=== PATIENT | male | born 1950 | race Caucasian/White ===

== ENCOUNTER 2017-11-10 18:03 | Emergency (ER) | payer MEDICARE, BC, OTHER, SELFPAY ==
[2017-11-10] VITALS (45 sets, daily range): BP systolic 123–168; BP diastolic 75–118; PULSE 91–161; RESP 12–67; TEMP 36.7–37.2; O2SAT 91–97
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
[2017-11-10] MEDS: Normal Saline 500 ML IV (18:30)
[2017-11-10 18:47] LABS: Abs Immature Grans 0.01 k/cumm (0.0-0.09); Absolute Basophil Count 0.03 k/cumm (0.0-0.2); Absolute Lymphocyte Count 1.27 k/cumm (1.2-3.4); Absolute Monocyte Count 0.69 k/cumm (0.11-0.7); Absolute Neutrophil Count 2.51 k/cumm (1.2-6.7); Basophils % 0.6; Eosinophils % 6.2; HCT 38.4 % (40.0-50.0); HGB 13.1 g/dL (13.5-17.5); Immature Grans % 0.2; Lymphocytes % 26.4; Mean Corp. HGB Concentration 34.1 g/dL (32.0-36.0); Mean Corpuscular Hemoglobin 34.6 pg (27.0-33.0); Mean Corpuscular Volume 101.3 fL (80-95); Mean Platelet Volume 9.2 fL (8.0-11.0); Monocytes % 14.3; Neutrophils % 52.3; Platelet Count 139 x1000/uL (130-400); RBC 3.79 m/cumm (4.50-6.00); RBC Distribution Width 13.5 % (11.8-14.1); White Blood Cell Count 4.81 k/cumm (4.4-10.8)
[2017-11-10 18:50] LABS: PTT Activated 35.4 sec (21.0-31.4); Prothrombin Time 57.4 sec (9.3-10.8)
[2017-11-10 18:52] LABS: ALT 60 U/L (12-78); AST 88 U/L (15-37); Albumin 2.9 g/dL (3.4-5.0); Alkaline Phosphatase 102 U/L (46-116); Anion Gap 10.5 mmol/L (3-11); BUN 12 mg/dL (7-18); Bilirubin, Total 0.5 mg/dL (0.2-1.0); CO2 27.5 mmol/L (21.0-32.0); CREATININE 1.14 mg/dL (0.70-1.30); Calcium 8.1 mg/dL (8.5-10.1); Chloride 104 mmol/L (98-107); ETHANOL BLOOD 183.2 mg/dL (<3); Glucose 139 mg/dL (70-100); Magnesium 2.2 mg/dL (1.8-2.4); Potassium 3.4 mmol/L (3.5-5.1); Sodium 142 mmol/L (136-145); Total Protein 6.2 g/dL (6.4-8.2)
[2017-11-10 18:59] LABS: Troponin I < 0.02 ng/mL (0.00-0.06)
[2017-11-10 19:01] LABS: INR 6.3 (1.0-3.5)
[2017-11-10] MEDS: Omnipaque 350 MG/ML 100 ML BTL 125 ML IV (19:20)
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
[2017-11-10] MEDS: PHYTONADIONE 10 MG in Normal Saline 50 ML 200 MG IVPB (21:21)
[2017-11-10] MEDS: MORPHine 10 MG/ML VIAL 4 MG IVP (21:51)
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
--- NOTE | 2017-11-12 21:32 | NUR.NOTE ---
Nursing Note: As charted on 11/10/17 Kcentra was administered in LAC IV site and ended at 2049.
== END 2017-11-10 21:57 | disposition short-term general hospital (02) ==
PROVIDERS: Nurse Practitioner Family; Emergency Provider Emergency Medicine
DX: S06.360A Traumatic hemorrhage of cerebrum, unspecified, without loss of consciousness, initial encounter (principal); S13.4XXA Sprain of ligaments of cervical spine, initial encounter; Z04.3 Encounter for examination and observation following other accident; V47.5XXA Car driver injured in collision with fixed or stationary object in traffic accident, initial encounter; I48.0 Paroxysmal atrial fibrillation; I10 Essential (primary) hypertension; R79.1 Abnormal coagulation profile; T45.515A Adverse effect of anticoagulants, initial encounter; Z79.01 Long term (current) use of anticoagulants; M79.642 Pain in left hand; M25.552 Pain in left hip; F10.129 Alcohol abuse with intoxication, unspecified; Y90.6 Blood alcohol level of 120-199 mg/100 ml
CPT/HCPCS: 70450; 70486; 71260; 72125; 72128; 72131; 73130; 73502; 73552; 74177; 93005; 96361; 96365; 96368; 96375; 96376; 99291 ×2; J2270; J3430; 36415; 80053; 86850; 86900; 86901; 80320; 83735; 84484; 85025; 85610; 85730; 93010; J3490

== ENCOUNTER 2021-09-17 16:05 | Outpatient (CLI) | payer MEDICARE, BC, SELFPAY ==
[2021-09-17 13:48] LABS: Abs Immature Grans 0.02 10^3/uL (0.0-0.06); Absolute Basophil Count 0.04 10^3/uL (0.0-0.2); Absolute Lymphocyte Count 1.06 10^3/uL (1.2-3.4); Absolute Monocyte Count 0.68 10^3/uL (0.1-0.8); Absolute Neutrophil Count 6.51 10^3/uL (1.2-6.7); Basophils % 0.5; Eosinophils % 1.2; HCT 42.5 % (40.0-50.0); HGB 13.6 g/dL (13.5-17.5); Immature Grans % 0.2; Lymphocytes % 12.6; MCH 31.8 pg (27.0-33.0); MCV 99 fL (80-95); MPV 9.5 fL (8.0-11.0); Monocytes % 8.1; Neutrophils % 77.4; Platelet Count 180 10^3/uL (130-400); RBC 4.28 10^6/uL (4.36-5.78); RDW 12.9 % (11.8-14.1); RDW-SD 47.2 fL; WBC 8.41 10^3/uL (4.4-10.8)
[2021-09-17 14:02] LABS: ALT 21 U/L (16-63); AST 11 U/L (15-37); Albumin 3.6 g/dL (3.4-5.0); Alkaline Phosphatase 100 U/L (46-116); Anion Gap 9.5 mmol/L (3-11); BUN 14 mg/dL (7-18); Bilirubin, Total 0.6 mg/dL (0.2-1.0); CO2 26.5 mmol/L (21.0-32.0); CREATININE 0.8 mg/dL (0.70-1.30); Chloride 104 mmol/L (98-107); Glucose 199 mg/dL (74-106); Potassium 4.6 mmol/L (3.5-5.1); Sodium 140 mmol/L (136-145); Total Protein 7.3 g/dL (6.4-8.2)
== END 2021-09-17 16:06 | disposition home or self-care (01) ==
LOC: LBO 16:08
PROVIDERS: Visit Provider Internal Medicine Hematology & Oncology
DX: C25.0 Malignant neoplasm of head of pancreas (principal)
CPT/HCPCS: 36415; 80053; 85025

== ENCOUNTER 2021-09-23 04:01 | Outpatient (CLI) | payer MEDICARE, BC, SELFPAY ==
[2021-09-23 12:09] LABS: Abs Immature Grans 0.03 10^3/uL (0.0-0.06); Absolute Basophil Count 0.02 10^3/uL (0.0-0.2); Absolute Eosinophil Count 0.15 10^3/uL (0.0-0.7); Absolute Monocyte Count 0.53 10^3/uL (0.1-0.8); Absolute Neutrophil Count 6.23 10^3/uL (1.2-6.7); Basophils % 0.3; HCT 43.6 % (40.0-50.0); HGB 14.3 g/dL (13.5-17.5); Immature Grans % 0.4; Lymphocytes % 6.7; MCH 31.8 pg (27.0-33.0); MCHC 32.8 % (32.0-36.0); MCV 97 fL (80-95); MPV 9.7 fL (8.0-11.0); Monocytes % 7.1; Neutrophils % 83.5; Platelet Count 141 10^3/uL (130-400); RBC 4.49 10^6/uL (4.36-5.78); RDW 13.2 % (11.8-14.1); RDW-SD 46.8 fL; WBC 7.46 10^3/uL (4.4-10.8)
[2021-09-23 13:06] LABS: ALT 23 U/L (16-63); AST 15 U/L (15-37); Albumin 3.4 g/dL (3.4-5.0); Alkaline Phosphatase 122 U/L (46-116); Anion Gap 8.3 mmol/L (3-11); BUN 10 mg/dL (7-18); Bilirubin, Total 0.6 mg/dL (0.2-1.0); CO2 27.7 mmol/L (21.0-32.0); CREATININE 0.8 mg/dL (0.70-1.30); Calcium 8.9 mg/dL (8.5-10.1); Chloride 105 mmol/L (98-107); Glucose 159 mg/dL (74-106); Potassium 3.3 mmol/L (3.5-5.1); Sodium 141 mmol/L (136-145); Total Protein 7.1 g/dL (6.4-8.2)
== END 2021-09-23 04:02 | disposition home or self-care (01) ==
LOC: LBO 04:01
PROVIDERS: Visit Provider Internal Medicine Hematology & Oncology
DX: C25.0 Malignant neoplasm of head of pancreas (principal)
CPT/HCPCS: 36415; 80053; 85025

== ENCOUNTER 2021-10-07 03:09 | Outpatient (RCR) | payer MEDICARE, BC, SELFPAY ==
[2021-09-30] MEDS: Heparin 500 UNITS/5 ML SYRINGE IV (08:53)
[2021-09-30] MEDS: Normal Saline Flush 10 ML SYR IVP (08:53)
[2021-09-30 09:07] LABS: Abs Immature Grans 0.03 10^3/uL (0.0-0.06); Absolute Basophil Count 0.03 10^3/uL (0.0-0.2); Absolute Eosinophil Count 0.15 10^3/uL (0.0-0.7); Absolute Lymphocyte Count 0.29 10^3/uL (1.2-3.4); Absolute Monocyte Count 1.04 10^3/uL (0.1-0.8); Basophils % 0.3; Eosinophils % 1.3; HCT 37.2 % (40.0-50.0); HGB 12.3 g/dL (13.5-17.5); Immature Grans % 0.3; Lymphocytes % 2.6; MCH 31.9 pg (27.0-33.0); MCHC 33.1 % (32.0-36.0); MCV 96 fL (80-95); MPV 10.3 fL (8.0-11.0); Monocytes % 9.2; Neutrophils % 86.3; Platelet Count 129 10^3/uL (130-400); RBC 3.86 10^6/uL (4.36-5.78); RDW 13.3 % (11.8-14.1)
[2021-09-30 09:08] LABS: Absolute Neutrophil Count 9.75 10^3/uL (1.2-6.7)
[2021-09-30 09:34] LABS: ALT 22 U/L (16-63); AST 16 U/L (15-37); Albumin 3.1 g/dL (3.4-5.0); Alkaline Phosphatase 107 U/L (46-116); Anion Gap 9.5 mmol/L (3-11); BUN 9 mg/dL (7-18); Bilirubin, Total 0.5 mg/dL (0.2-1.0); CO2 27.5 mmol/L (21.0-32.0); CREATININE 0.7 mg/dL (0.70-1.30); Calcium 8.4 mg/dL (8.5-10.1); Chloride 100 mmol/L (98-107); Glucose 202 mg/dL (74-106); Potassium 3.3 mmol/L (3.5-5.1); Sodium 137 mmol/L (136-145); Total Protein 6.5 g/dL (6.4-8.2)
[2021-10-07 09:30] LABS: Abs Immature Grans 0.03 10^3/uL (0.0-0.06); Absolute Basophil Count 0.03 10^3/uL (0.0-0.2); Absolute Eosinophil Count 0.24 10^3/uL (0.0-0.7); Absolute Lymphocyte Count 0.38 10^3/uL (1.2-3.4); Absolute Monocyte Count 0.87 10^3/uL (0.1-0.8); Absolute Neutrophil Count 5.21 10^3/uL (1.2-6.7); Basophils % 0.4; Eosinophils % 3.6; HCT 38.2 % (40.0-50.0); HGB 12.5 g/dL (13.5-17.5); Immature Grans % 0.4; Lymphocytes % 5.6; MCH 31.5 pg (27.0-33.0); MCHC 32.7 % (32.0-36.0); MCV 96 fL (80-95); MPV 9.5 fL (8.0-11.0); Monocytes % 12.9; Neutrophils % 77.1; Platelet Count 147 10^3/uL (130-400); RBC 3.97 10^6/uL (4.36-5.78); RDW 13.8 % (11.8-14.1); WBC 6.76 10^3/uL (4.4-10.8)
[2021-10-07 09:50] LABS: ALT 22 U/L (16-63); AST 14 U/L (15-37); Albumin 3.3 g/dL (3.4-5.0); Alkaline Phosphatase 89 U/L (46-116); Anion Gap 5.6 mmol/L (3-11); BUN 12 mg/dL (7-18); Bilirubin, Total 0.6 mg/dL (0.2-1.0); CO2 26.4 mmol/L (21.0-32.0); CREATININE 0.7 mg/dL (0.70-1.30); Calcium 8.6 mg/dL (8.5-10.1); Chloride 104 mmol/L (98-107); Glucose 83 mg/dL (74-106); Potassium 3.7 mmol/L (3.5-5.1); Sodium 136 mmol/L (136-145); Total Protein 6.6 g/dL (6.4-8.2)
== END 2021-10-10 23:59 | disposition home or self-care (01) ==
LOC: INF 03:09
PROVIDERS: Visit Provider Internal Medicine Hematology & Oncology
DX: C25.0 Malignant neoplasm of head of pancreas (principal); Z45.2 Encounter for adjustment and management of vascular access device
CPT/HCPCS: 36591; 80053; 85025

== ENCOUNTER 2021-10-15 02:14 | Outpatient (RCR) | payer MEDICARE, BC, SELFPAY ==
[2021-10-15] MEDS: Normal Saline Flush 10 ML SYR IVP (14:05)
[2021-10-15] MEDS: Heparin 500 UNITS/5 ML SYRINGE IV (14:06)
[2021-10-15 14:09] LABS: Abs Immature Grans 0.03 10^3/uL (0.0-0.06); Absolute Basophil Count 0.03 10^3/uL (0.0-0.2); Absolute Eosinophil Count 0.09 10^3/uL (0.0-0.7); Absolute Lymphocyte Count 0.27 10^3/uL (1.2-3.4); Absolute Monocyte Count 0.72 10^3/uL (0.1-0.8); Absolute Neutrophil Count 5.78 10^3/uL (1.2-6.7); Basophils % 0.4; Eosinophils % 1.3; HCT 42.3 % (40.0-50.0); HGB 13.6 g/dL (13.5-17.5); Immature Grans % 0.4; Lymphocytes % 3.9; MCH 31.3 pg (27.0-33.0); MCHC 32.2 % (32.0-36.0); MCV 98 fL (80-95); MPV 9.9 fL (8.0-11.0); Monocytes % 10.4; Neutrophils % 83.6; Platelet Count 153 10^3/uL (130-400); RBC 4.34 10^6/uL (4.36-5.78); RDW 14.4 % (11.8-14.1); WBC 6.92 10^3/uL (4.4-10.8)
[2021-10-15 14:24] LABS: ALT 24 U/L (16-63); AST 16 U/L (15-37); Albumin 3.6 g/dL (3.4-5.0); Alkaline Phosphatase 103 U/L (46-116); BUN 13 mg/dL (7-18); Bilirubin, Total 0.6 mg/dL (0.2-1.0); CREATININE 0.8 mg/dL (0.70-1.30); Calcium 8.8 mg/dL (8.5-10.1); Chloride 102 mmol/L (98-107); Glucose 153 mg/dL (74-106); Potassium 3.9 mmol/L (3.5-5.1); Sodium 137 mmol/L (136-145); Total Protein 7.1 g/dL (6.4-8.2)
== END 2021-11-10 23:59 | disposition home or self-care (01) ==
LOC: INF 02:14
PROVIDERS: Visit Provider Internal Medicine Hematology & Oncology
DX: C25.0 Malignant neoplasm of head of pancreas (principal); Z45.2 Encounter for adjustment and management of vascular access device
CPT/HCPCS: 36591; 80053; 85025

== ENCOUNTER 2021-10-15 11:27 | Outpatient (CLI) | payer MEDICARE, BC, SELFPAY | END 2021-10-15 11:28 | disposition home or self-care (01) | LOC: LBO 11:27 | PROVIDERS: Visit Provider Internal Medicine Hematology & Oncology ==

== ENCOUNTER 2022-02-21 17:00 | Outpatient (CLI) | payer MEDICARE, BC, SELFPAY ==
[2022-02-21 16:17] LABS: Abs Immature Grans 0.02 10^3/uL (0.0-0.06); Absolute Basophil Count 0.03 10^3/uL (0.0-0.2); Absolute Eosinophil Count 0.11 10^3/uL (0.0-0.7); Absolute Lymphocyte Count 0.45 10^3/uL (1.2-3.4); Absolute Monocyte Count 0.41 10^3/uL (0.1-0.8); Absolute Neutrophil Count 4.73 10^3/uL (1.2-6.7); Basophils % 0.5; Eosinophils % 1.9; HCT 35.2 % (40.0-50.0); HGB 11.4 g/dL (13.5-17.5); Immature Grans % 0.3; Lymphocytes % 7.8; MCH 30.6 pg (27.0-33.0); MCHC 32.4 % (32.0-36.0); MCV 95 fL (80-95); MPV 9.7 fL (8.0-11.0); Monocytes % 7.1; Neutrophils % 82.4; Platelet Count 138 10^3/uL (130-400); RBC 3.72 10^6/uL (4.36-5.78); RDW 15.6 % (11.8-14.1); RDW-SD 54.7 fL; WBC 5.75 10^3/uL (4.4-10.8)
[2022-02-21 17:10] LABS: ALT 47 U/L (16-63); AST 47 U/L (15-37); Albumin 3.1 g/dL (3.4-5.0); Alkaline Phosphatase 145 U/L (46-116); BUN 13 mg/dL (7-18); Bilirubin, Total 0.8 mg/dL (0.2-1.0); CREATININE 0.8 mg/dL (0.70-1.30); Calcium 8.6 mg/dL (8.5-10.1); Chloride 100 mmol/L (98-107); Estimated GFR 93.45 (mL/min/1.73m2); Glucose 317 mg/dL (74-106); Potassium 4.7 mmol/L (3.5-5.1); Sodium 136 mmol/L (136-145); Total Protein 6.5 g/dL (6.4-8.2)
[2022-02-24 11:02] LABS: CA 19-9 84 U/mL (<35)
== END 2022-02-21 17:01 | disposition home or self-care (01) ==
LOC: LBO 17:01
PROVIDERS: Visit Provider Internal Medicine Hematology & Oncology
DX: C25.0 Malignant neoplasm of head of pancreas (principal)
CPT/HCPCS: 36415; 80053; 85025; 86301

== ENCOUNTER 2022-03-21 08:58 | Day surgery (SDC) | payer OTHER, SELFPAY ==
[2022-03-21 09:15] VITALS: BP 140/94; PULSE 72; RESP 16; TEMP 36.9; O2SAT 99
[2022-03-21] MEDS: Tropicam./Phenyleph. (1/2.5%) 5 ML BTL OS ×3 (09:29→09:55)
--- NOTE | 2022-03-21 10:57 | ANES.PREOP_ITS ---
General Info Date of Service Date Performed: 03/21/22 Height: 5 ft 9 in Weight: 58 kg Body Mass Index (BMI): 18.8 Surgical Procedure: Operation Date: 03/21/22 11:40 Proposed Procedure Side Surgeon p Cataract Extraction with IOL Implant Left Taiwo Tran MD Meds Allergies and Home Medications Allergies Allergy/AdvReac Type Severity Reaction Status Date / Time cefaclor [From [facility]] Allergy Hives Unverified 03/21/22 09:39 Home Medication Medication Instructions Recorded amlodipine 5 mg tablet 5 mg PO DAILY 11/10/17 cholecalciferol (vitamin D3) 25 1 tab PO DAILY 11/10/17 mcg (1,000 unit) tablet artificial tears with lanolin eye 1 applic ophthalmic (eye) HS 03/19/22 ointment buprenorphine 2 mg-naloxone 0.5 mg 1 tab sublingual DAILY 03/19/22 sublingual tablet cholecalciferol (vitamin D3) 25 25 mcg PO DAILY 03/19/22 mcg (1,000 unit) capsule diltiazem HCl 120 mg capsule,24 120 mg PO DAILY 03/19/22 hr,extended release eucalyptol-methyl 1 ea mucous membrane BID 03/19/22 qddikuabmi-qxmtcji-rpvlqw mouthwash gabapentin 300 mg capsule 300 mg PO TID 03/19/22 insulin glargine 100 unit/mL (3 7 unit subcut QPM 03/19/22 mL) subcutaneous pen qhpxqa-hkkfisxc-difhypk 4 cap PO TID 03/19/22 24,000-76,000-120,000 unit capsule,delayed rel (Creon) loperamide 2 mg capsule 2 - 4 mg PO Q4H PRN 03/19/22 nutritional supplements ml PO BID 03/19/22 omeprazole 20 mg capsule,delayed 20 mg PO DAILY 03/19/22 release oxycodone 5 mg capsule 5 mg PO TID PRN 03/19/22 peg 400-propylene glycol 0.4 %-0.3 2 drp ophthalmic (eye) QID 03/19/22 % eye drops prochlorperazine maleate 10 mg 10 mg PO Q6H PRN 03/19/22 tablet rosuvastatin 20 mg tablet 10 mg PO DAILY 03/19/22 Current Visit Medications: Current Medications Generic Name Dose Route Start Last Admin Trade Name Freq PRN Reason Stop Dose Admin Acetaminophen 1,000 mg 03/21/22 06:00 Acetaminophen 500 Mg Tab PO Q4H PRN PRN Miscellaneous Medication 0 ml 03/21/22 06:00 Prednisolone 1%, Moxifloxacin 0.5%, Nepafenac 0.1% 5ml Btl OS DIRECTED [facility] Miscellaneous Medication 0 ml 03/21/22 06:00 03/21/22 09:55 Tropicam./Phenyleph. (1/2.5%) 5 Ml Btl OS 1 drp DIRECTED [facility] Administration Tetracaine HCl 0 ml 03/21/22 06:00 Tetracaine 0.5% 4 Ml Btl OS DIRECTED [facility] PFSH Active Problems Active Problems: Problem Status Onset Code Posterior subcapsular age-related cataract of left eye H25.042 Nuclear sclerotic cataract of left eye H25.12 Medical History Medical History (Updated 03/21/22 @ 10:54 by Taiwo Tran MD) ADHD Anxiety disorder CAD (coronary artery disease) Chronic atrial fibrillation Chronic low back pain Chronic renal insufficiency CVA (cerebral vascular accident) Depressive disorder Diabetes mellitus History of diarrhea Hypertension Infection abdominal wound infection Insomnia Opioid dependence Pain Pancreatic cancer PTSD (post-traumatic stress disorder) Surgical History Surgical History (Updated 03/21/22 @ 10:02 by Maggie Oneal) H/O Whipple procedure 12/02 History of cholecystectomy Tobacco Smoking/Tobacco Use Status: Current every day Tobacco Type: smokeless tobacco Alcohol Alcohol Intake: never Substance Use Substance use: Never Substance use type: does not use Vital Signs and Lab Results Vital Signs Most Recent Vital Signs in EMR: Most Recent Vital Signs Temp Pulse Resp BP Pulse Ox 36.9 C 72 16 140/94 H 99 03/21/22 09:15 03/21/22 09:15 03/21/22 09:15 03/21/22 09:15 03/21/22 09:15 Point of Care Results Point of Care Results: Finger Stick Blood Glucose 296 03/21/22 09:17 Lab Results Blood Type / Crossmatch: No Data to Display Complete Blood Count: White Blood Count 5.75 10^3/uL (4.4-10.8) 02/21/22 16:05 Red Blood Count 3.72 10^6/uL (4.36-5.78) L 02/21/22 16:05 Hemoglobin 11.4 g/dL (13.5-17.5) L 02/21/22 16:05 Hematocrit 35.2 % (40.0-50.0) L 02/21/22 16:05 Platelet Count 138 10^3/uL (130-400) 02/21/22 16:05 Complete Metabolic Panel: Sodium 136 mmol/L (136-145) 02/21/22 16:05 Potassium 4.7 mmol/L (3.5-5.1) 02/21/22 16:05 Chloride 100 mmol/L (98-107) 02/21/22 16:05 Carbon Dioxide 31.0 mmol/L (21.0-32.0) 02/21/22 16:05 BUN 13 mg/dL (7-18) 02/21/22 16:05 Creatinine 0.8 mg/dL (0.70-1.30) 02/21/22 16:05 Est GFR (CKD-EPI 2020) 93.45 (mL/min/1.73m2) 02/21/22 16:05 Calcium 8.6 mg/dL (8.5-10.1) 02/21/22 16:05 Albumin 3.1 g/dL (3.4-5.0) L 02/21/22 16:05 Glucose 317 mg/dL (74-106) H 02/21/22 16:05 Liver Function Panel: Alanine Aminotransferase (ALT/SGPT) 47 U/L (16-63) 02/21/22 16: 05 Aspartate Amino Transf (AST/SGOT) 47 U/L (15-37) H 02/21/22 16: 05 Coagulation Panel: No Data to Display Cardiac Panel: No Data to Display Arterial Blood Gas: No Data to Display Venous Blood Gas: No Data to Display Pancreas Panel: No Data to Display Thyroid Panel: No Data to Display Infectious Disease: No Data to Display Blood Cultures: No Data to Display Toxicology Panel: 2 No Data to Display Anesthesia Assessment and Plan Anesthesia History Personal History: No History of Anesthesia Complications Family History: No Family History of Anesthesia Complications Exercise Tolerance Exercise Tolerance: Metabolic Equivalents>4 Pertinent Negatives Pertinent Negatives: No Symptoms of GERD, No Major Cardiovascular Symptoms or Complaints (Atrial fib), No Major Pulmonary Symptoms or Complaints and No History of CVA/TIA Cardiac & Pulmonary Exam Cardiac Exam: Normal S1/S2 Heart Sounds Pulmonary Exam: Clear Bilateral Breath Sounds Implantable Cardiac Device Does patient have a Pacemaker or an ICD?: No Airway Exam Known Difficult Airway: No Mallampati Class: 1 Mouth Opening: Normal (> 3cm) Thyromental Distance: Greater than 3 cm Facial Hair: Full [place]ani Neck Range of Motion: Full ROM Neck Circumference: Normal Teeth Condition: Generalized Poor Dentition Airway Comments: No loose teeth ASA Classification ASA Score: ASA 2 Emergency Case?: No NPO Status NPO Status: NPO Clears >2 hours, Solids >8 hours Anesthesia Plan Resuscitation Status: Full Code Anesthesia Technique: General Anesthesia Airway Planned: Natural Airway Monitors Used: Standard Monitors
[2022-03-21 10:58] VITALS: BMI 18.8
[2022-03-21] MEDS: Tetracaine 0.5% 4 ML BTL OS (11:13)
[2022-03-21] MEDS: Balanced Salt Soln.-PLUS 500 ML BAG (11:14)
[2022-03-21] MEDS: Duovisc Viscoelastic System EACH 1 EACH (11:14)
[2022-03-21] MEDS: Lidocaine 2% Jelly 6 ML SYR (11:15)
[2022-03-21] MEDS: Povidone-Iodine Ophth 30 ML BTL (11:16)
[2022-03-21] MEDS: Trypan Blue 0.06% 0.5 ML SYR (11:25)
--- NOTE | 2022-03-21 11:44 | ROE_ITS ---
Date of service: 03/21/22 Time of Service: 11:44 Operative Note Operative Note DATE OF PROCEDURE: 03/21/22 PRE-OP DIAGNOSIS: Nuclear/posterior subcapsular cataract, left eye Poorly dilating pupil, left eye Poor red reflex, left eye PROCEDURE: Cataract extraction using phacoemulsification with intraocular lens implant, left eye, with pupillary dilation using Malyugin Ring and capsular staining using Vision Blue SURGEON: Taiwo Tran ANESTHESIA TYPE: Local By Surgeon and MAC Refer to Anesthesia Record ESTIMATED BLOOD LOSS: 0 PATHOLOGY: none sent COMPLICATIONS: None Patient was transported to: same day Patient's condition: stable Implants: [employer] Tecnis [id number] Indications: Progressive decreased vision due to cataract, left eye Procedure Description: CATARACT SURGERY OPERATIVE REPORT PREOPERATIVE DIAGNOSIS: 1. Nuclear/posterior subcapsular cataract, left eye 2. Poorly dilating pupil, left eye 3. Poor red reflex, left eye POSTOPERATIVE DIAGNOSIS: Same OPERATION: 1. Cataract extraction using phacoemulsification with posterior chamber intraocular lens implant, left eye. 2. Pupillary dilation and iris stabilization using Malyugin Ring 3. Capsular staining with VIsion Blue IOL: IOL Evidence Technician/Model: [employer] / UNA Tecnis [id number] IOL Power: + 20.0 diopters IOL Serial Number: [id number] Optic Diameter: 6.0mm Haptic/Overall Diameter: 13.0mm PHACO INFO: Thad Centurion Vision System with OZil and Active [employer]ics Cumulative Dispersed Energy (CDE): 22.56 seconds SURGEON: Taiwo Tran MD, NATAN ANESTHESIA: Monitored Anesthesia Care (MAC), with local sub-tenon's anesthetic infiltration COMPLICATIONS: None SPECIMENS: None INDICATIONS FOR PROCEDURE: The patient is a 71-year-old gentleman with history of diminished visual acuity in his left eye secondary to the development of significant nuclear/posterior subcapsular cataract. The option of cataract surgery was offered to the patient and he wished to proceed. PROCEDURE: The correct surgical eye was identified and marked as the left eye and the pupil was dilated in the preoperative area using mydriatics, cycloplegics, and NSAIDS (except in aspirin allergic patients). The dilated pupil size was 4.0 mm. The patient was brought to the operating room where cardiopulmonary monitoring was instituted and surgical time-out was performed, confirming the correct operative eye and IOL power. Topical anesthesia was administered and ophthalmic povidone-iodine 5% was instilled into the conjunctival fornices. Lidocaine gel was applied to the cornea and the jorje-ocular area was prepped with Betadine 10% solution and draped in the usual sterile fashion for intraocular surgery, including an aperture drape. A Tegaderm transparent film dressing was cut in half and used to cover the lashes and lid margins. Care was taken to sequester the lashes and lid margins under the Tegaderm dressing. A lid speculum was placed between the lids of the operative eye and the Ana Cristina-Miguel Angel operating microscope was maneuvered into position. Orquidea scissors were then used to make a conjunctival buttonhole approximately 6mm posterior to the limbus in the inferonasal quadrant. Blunt dissection was carried out to expose bare sclera, and a blunt-tipped sub-tenon?s anesthesia cannula was introduced and passed posteriorly along the globe where non- preserved plain lidocaine was injected into posterior sub-Tenon?s space. A sideport knife was used to make a paracentesis port superiorly/superiortemporally. Intraocular phenylephrine/lidocaine was injected into the anterior chamber. Air was then injected into anterior chamber, followed by Vision Blue, which was painted over the anterior capsule centrally and under the pupillary margin and then irrigated out with BSS. The anterior chamber was then filled with viscoelastic. A 2.4mm keratome knife was used to create a half-thickness groove at the limbus and then to construct a three-plane near- clear corneal tunnel extending 2.0mm into clear cornea temporally. A 7.0 mm Malyugin Ring was then inserted into the pupillary space and engaged with the Kuglen hook. A flap was raised on the anterior capsule and capsulorhexis forceps were used to complete a continuous curvilinear capsulorhexis of 5.5 mm. Balanced salt solution was then used to perform cortical cleaving hydrodissection and nuclear hydrodelineation until the lens could be freely rot ated within the capsular bag. The lens nucleus was then disassembled and removed within the capsular bag and iris plane using phacoemulsification. Residual cortical material was removed using the 45-degree angled silicone I/A tip with 0.3mm port. The posterior capsule was carefully polished to remove as much residual lens epithelial cells as safely possible. The capsular bag was then inflated and the anterior chamber deepened with viscoelastic. The lens implant described above was inserted into the capsular bag using the UNA Habematolel Injector. A Kuglen hook was used to dial the IOL into position. The Malyugin Ring was removed in the reverse order of its insertion. Residual viscoelastic was then removed first from posterior to the IOL, then from the anterior chamber using the I/A handpiece. The lens implant was noted to center nicely within the capsular bag. The incisions were stromally hydrated, and the anterior chamber was reformed using BSS. Then 0.5cc of moxifloxacin 1.0mg/ml were injected into the capsular bag and anterior chamber. The incisions were checked with a Weck spear and found to be secure. Several drops of ophthalmic povidone-iodine 5% were then applied to the eye followed by two drops of Imprimis combination prednisolone/moxifloxacin/nepafenac solution. The drapes were removed and a clear plastic protective eye shield was placed over the eye. The patient was then returned to Same Day Surgery in stable condition.
--- NOTE | 2022-03-21 11:44 | PDOC.DSDIS_ITS ---
Date of service: 03/21/22 Time of Service: 11:44 Discharge Plan Disposition Patient Disposition: HOME Condition: Good Discharge Details Attending Provider: Taiwo Tran Primary Care Provider: [facility] Home Meds and New Rx's Prescriptions: No Action loperamide 2 mg Capsule 2 - 4 mg PO Q4H PRN Rx Instructions: administer after each loose stool until symptoms controlled; do not exceed 8 mg per 24 hrs Nutra/Shake Liquid PO BID prochlorperazine maleate 10 mg Tablet 10 mg PO Q6H PRN diltiazem HCl 120 mg Capsule,Extended Release 24 Hr 120 mg PO DAILY oxycodone 5 mg Capsule 5 mg PO TID PRN gabapentin 300 mg Capsule 300 mg PO TID omeprazole 20 mg Capsule,Delayed Release(Dr/Ec) 20 mg PO DAILY buprenorphine-naloxone 2-0.5 mg Tablet, Sublingual 1 tab SUBLINGUAL DAILY peg 400-propylene glycol 0.4-0.3 % Drops 2 drp OPHTHALMIC (EYE) QID rosuvastatin 20 mg Tablet 10 mg PO DAILY Eye Lubricant Ointment 1 applic OPHTHALMIC (EYE) HS Rx Instructions: while awake; not to exceed 16 doses per 24 hour period insulin glargine 100 unit/mL (3 mL) Insulin Pen 7 unit SUBCUT QPM Creon 24,000-76,000 -120,000 unit Capsule,Delayed Release(Dr/Ec) 4 cap PO TID Rx Instructions: administer with meals and/or snacks cholecalciferol (vitamin D3) 25 mcg (1,000 unit) Capsule 25 mcg PO DAILY Mouth Rinse Mouthwash 1 ea mucous membrane BID amlodipine 5 MG tablet 5 mg PO DAILY cholecalciferol (vitamin D3) 1,000 UNITS tablet 1 tab PO DAILY Discharge Instructions Stand Alone Forms: Post-op Topical CataractPatty (DSU) DS: Diagnosis Discharge Diagnosis (1) Posterior subcapsular age-related cataract of left eye: Status: Resolved (2) Nuclear sclerotic cataract of left eye: Status: Resolved
[2022-03-21 11:45] VITALS: BP 125/98; PULSE 88; RESP 16; TEMP 36.2; O2SAT 96
--- NOTE | 2022-03-21 11:46 | W.ANESPOSTOP ---
Postoperative Evaluation Date, Time and Location Date Performed: 03/21/22 Time Performed: 11:46 Patient Location: Day Surgery Unit Vital Signs Most Recent Imported Vital Signs: Most Recent Vital Signs Temp Pulse Resp BP Pulse Ox 36.9 C 72 16 140/94 H 99 03/21/22 09:15 03/21/22 09:15 03/21/22 09:15 03/21/22 09:15 03/21/22 09:15 Most Recent Manually Entered Vital Signs: Adult Blood Pressure: 125/98 Heart Rate: 89 Respirations: 10 Oxygen Saturation (%): 98 Temperature (C): 36.3 C Pain Score (0-10 Scale): 0 Pain Score Most Recent Pain Score: Most Recent Pain Score Pain Level 0 03/21/22 09:15 Assessment Mental Status: Awake (Alert & Oriented to Patient Baseline) Airway and Respiratory Function: Patent airway with normal (patient baseline) respiratory exam Cardiovascular Function: Hemodynamically Stable Hydration Status: Adequately Hydrated Nausea & Vomiting: No Nausea or Vomiting Pain: Pt. Denies Any Pain Peripheral Nerve Block: Patient did not receive a nerve block
[2022-03-21 11:47] VITALS: BP 125/98; PULSE 89; RESP 10; TEMPC 36.3; O2SAT 98
== END 2022-03-21 12:13 | disposition home or self-care (01) ==
PROVIDERS: Visit Provider Ophthalmology
PROC: (CPT 66982; principal; 2022-03-21 11:30)
DX: H25.042 Posterior subcapsular polar age-related cataract, left eye (principal); H57.03 Miosis; E11.9 Type 2 diabetes mellitus without complications; Z79.4 Long term (current) use of insulin
CPT/HCPCS: 66982; V2632

== ENCOUNTER 2022-03-31 11:14 | Day surgery (SDC) | payer OTHER, SELFPAY ==
[2022-03-31] MEDS: Tropicam./Phenyleph. (1/2.5%) 5 ML BTL OD ×3 (12:40→12:53)
[2022-03-31 12:41] VITALS: BP 136/88; PULSE 80; RESP 16; TEMP 36.5; O2SAT 98
--- NOTE | 2022-03-31 13:01 | W.ANESPRE ---
General Info Date of Service Date Performed: 03/31/22 Height: 5 ft 9 in Weight: 56.5 kg Body Mass Index (BMI): 18.3 Surgical Procedure: Operation Date: 03/31/22 14:40 Proposed Procedure Side Surgeon p Cataract Extraction with IOL Implant Right Taiwo Tran MD Meds Allergies and Home Medications Allergies Allergy/AdvReac Type Severity Reaction Status Date / Time cefaclor [From [facility]] Allergy Hives Unverified 03/31/22 12:33 Home Medication Medication Instructions Recorded amlodipine 5 mg tablet 5 mg PO DAILY 11/10/17 cholecalciferol (vitamin D3) 25 1 tab PO DAILY 11/10/17 mcg (1,000 unit) tablet artificial tears with lanolin eye 1 applic ophthalmic (eye) HS 03/19/22 ointment buprenorphine 2 mg-naloxone 0.5 mg 1 tab sublingual DAILY 03/19/22 sublingual tablet cholecalciferol (vitamin D3) 25 25 mcg PO DAILY 03/19/22 mcg (1,000 unit) capsule diltiazem HCl 120 mg capsule,24 120 mg PO DAILY 03/19/22 hr,extended release eucalyptol-methyl 1 ea mucous membrane BID 03/19/22 bcbabljebs-jabwers-jatgmp mouthwash gabapentin 300 mg capsule 300 mg PO TID 03/19/22 insulin glargine 100 unit/mL (3 7 unit subcut QPM 03/19/22 mL) subcutaneous pen hlgktf-ceiftagr-umqffhp 4 cap PO TID 03/19/22 24,000-76,000-120,000 unit capsule,delayed rel (Creon) loperamide 2 mg capsule 2 - 4 mg PO Q4H PRN 03/19/22 nutritional supplements 240 ml PO BID 03/19/22 omeprazole 20 mg capsule,delayed 20 mg PO DAILY 03/19/22 release oxycodone 5 mg capsule 5 mg PO TID PRN 03/19/22 peg 400-propylene glycol 0.4 %-0.3 2 drp ophthalmic (eye) QID 03/19/22 % eye drops prochlorperazine maleate 10 mg 10 mg PO Q6H PRN 03/19/22 tablet rosuvastatin 20 mg tablet 10 mg PO DAILY 03/19/22 Current Visit Medications: Current Medications Generic Name Dose Route Start Last Admin Trade Name Freq PRN Reason Stop Dose Admin Acetaminophen 1,000 mg 03/31/22 06:00 Acetaminophen 500 Mg Tab PO Q4H PRN PRN Miscellaneous Medication 0 ml 03/31/22 06:00 Prednisolone 1%, Moxifloxacin 0.5%, Nepafenac 0.1% 5ml Btl OD DIRECTED [facility] Miscellaneous Medication 0 ml 03/31/22 06:00 03/31/22 12:53 Tropicam./Phenyleph. (1/2.5%) 5 Ml Btl OD 1 drp DIRECTED [facility] Administration Tetracaine HCl 0 ml 03/31/22 06:00 Tetracaine 0.5% 4 Ml Btl OD DIRECTED [facility] PFSH Active Problems Active Problems: Problem Status Onset Code Posterior subcapsular age-related cataract, right eye H25.041 Nuclear sclerotic cataract of right eye H25.11 Nuclear sclerotic cataract of left eye H25.12 Posterior subcapsular age-related cataract of left eye H25.042 Medical History Medical History ADHD Anxiety disorder CAD (coronary artery disease) Chronic atrial fibrillation Chronic low back pain Chronic renal insufficiency CVA (cerebral vascular accident) Depressive disorder Diabetes mellitus History of diarrhea Hypertension Infection abdominal wound infection Insomnia Opioid dependence Pain Pancreatic cancer PTSD (post-traumatic stress disorder) Medical History Comments:: 0900 chewed tobacco Surgical History Surgical History H/O Whipple procedure 12/02 History of cataract surgery History of cholecystectomy Tobacco Smoking/Tobacco Use Status: Current every day Tobacco Type: smokeless tobacco Alcohol Alcohol Intake: never Substance Use Substance use: Never Substance use type: does not use Vital Signs and Lab Results Vital Signs Most Recent Vital Signs in EMR: Most Recent Vital Signs Temp Pulse Resp BP Pulse Ox 36.5 C 80 16 136/88 98 03/31/22 12:41 03/31/22 12:41 03/31/22 12:41 03/31/22 12:41 03/31/22 12:41 Point of Care Results Point of Care Results: Finger Stick Blood Glucose 218 03/31/22 11:59 Lab Results Blood Type / Crossmatch: No Data to Display Complete Blood Count: No Data to Display Complete Metabolic Panel: No Data to Display Liver Function Panel: No Data to Display Coagulation Panel: No Data to Display Cardiac Panel: No Data to Display Arterial Blood Gas: No Data to Display Venous Blood Gas: No Data to Display Pancreas Panel: No Data to Display Thyroid Panel: No Data to Display Infectious Disease: No Data to Display Blood Cultures: No Data to Display Toxicology Panel: No Data to Display Anesthesia Assessment and Plan Anesthesia History Personal History: No History of Anesthesia Complications Family History: No Family History of Anesthesia Complications Exercise Tolerance Exercise Tolerance: Metabolic Equivalents>4 Pertinent Negatives Pertinent Negatives: No Symptoms of GERD, No Major Cardiovascular Symptoms or Complaints and No Major Pulmonary Symptoms or Complaints Cardiac & Pulmonary Exam Cardiac Exam: Normal S1/S2 Heart Sounds Pulmonary Exam: Clear Bilateral Breath Sounds Implantable Cardiac Device Does patient have a Pacemaker or an ICD?: No Airway Exam Known Difficult Airway: No Mallampati Class: 1 Mouth Opening: Normal (> 3cm) Thyromental Distance: Greater than 3 cm Neck Range of Motion: Full ROM Neck Circumference: Normal Teeth Condition: Generalized Poor Dentition Airway Comments: No loose teeth ASA Classification ASA Score: ASA 3 Emergency Case?: No NPO Status NPO Status: NPO Clear Liquids>2 hours Anesthesia Plan Resuscitation Status: Full Code Anesthesia Technique: MAC Anesthesia Airway Planned: Natural Airway Monitors Used: Standard Monitors Preoperative Comments:: Discussed smokeless tobacco use and NPO status. Discussed with Dr. Tran and patient, plan to proceed with no sedation.
[2022-03-31 13:03] VITALS: BMI 18.3
[2022-03-31] MEDS: Povidone-Iodine Ophth 30 ML BTL (13:23)
[2022-03-31] MEDS: Tetracaine 0.5% 4 ML BTL OD (13:23)
[2022-03-31] MEDS: Lidocaine 2% Jelly 6 ML SYR (13:24)
[2022-03-31] MEDS: Balanced Salt Soln.-PLUS 500 ML BAG (13:29)
[2022-03-31] MEDS: Duovisc Viscoelastic System EACH 1 EACH (13:29)
[2022-03-31] MEDS: Lidocaine 1% Pres-Free 5 ML VIAL (13:30)
--- NOTE | 2022-03-31 13:52 | W.PM.DSUDISC ---
Date of service: 03/31/22 Time of Service: 13:52 Discharge Plan Disposition Patient Disposition: Home Discharge Details Attending Provider: Taiwo Tran Primary Care Provider: [facility] Home Meds and New Rx's Prescriptions: No Action loperamide 2 mg Capsule 2 - 4 mg PO Q4H PRN Rx Instructions: administer after each loose stool until symptoms controlled; do not exceed 8 mg per 24 hrs Nutra/Shake Liquid 240 ml PO BID prochlorperazine maleate 10 mg Tablet 10 mg PO Q6H PRN diltiazem HCl 120 mg Capsule,Extended Release 24 Hr 120 mg PO DAILY oxycodone 5 mg Capsule 5 mg PO TID PRN gabapentin 300 mg Capsule 300 mg PO TID omeprazole 20 mg Capsule,Delayed Release(Dr/Ec) 20 mg PO DAILY buprenorphine-naloxone 2-0.5 mg Tablet, Sublingual 1 tab SUBLINGUAL DAILY peg 400-propylene glycol 0.4-0.3 % Drops 2 drp OPHTHALMIC (EYE) QID rosuvastatin 20 mg Tablet 10 mg PO DAILY Eye Lubricant Ointment 1 applic OPHTHALMIC (EYE) HS Rx Instructions: while awake; not to exceed 16 doses per 24 hour period insulin glargine 100 unit/mL (3 mL) Insulin Pen 7 unit SUBCUT QPM Creon 24,000-76,000 -120,000 unit Capsule,Delayed Release(Dr/Ec) 4 cap PO TID Rx Instructions: administer with meals and/or snacks cholecalciferol (vitamin D3) 25 mcg (1,000 unit) Capsule 25 mcg PO DAILY Mouth Rinse Mouthwash 1 ea mucous membrane BID amlodipine 5 MG tablet 5 mg PO DAILY cholecalciferol (vitamin D3) 1,000 UNITS tablet 1 tab PO DAILY Discharge Instructions Stand Alone Forms: Post-op Topical Cataract, Patty Briceey (DSU) Discharge Orders Discharge Orders: Discharge Order (Routine); Ordered 03/31/22 Ordered By: Taiwo Tran DS: Diagnosis Discharge Diagnosis (1) Posterior subcapsular age-related cataract, right eye: Status: Resolved (2) Nuclear sclerotic cataract of right eye: Status: Resolved
--- NOTE | 2022-03-31 13:53 | W.PM.OP ---
Date of service: 03/31/22 Time of Service: 13:53 Operative Note Operative Note DATE OF PROCEDURE: 03/31/22 PRE-OP DIAGNOSIS: Nuclear/cortical cataract, right eye Poorly dilating pupil, right eye POST-OP DIAGNOSIS: same PROCEDURE: 1. Cataract extraction by phacoemulsification with intraocular lens implantation, right eye, with pupillary expansion device SURGEON: Taiwo Tran ANESTHESIA TYPE: Local By Surgeon and MAC Refer to Anesthesia Record PATHOLOGY: none sent COMPLICATIONS: None Patient was transported to: same day Patient's condition: stable Implants: [employer] / [employer] Tecnis [id number] Indications: Progressive decreased vision due to cataract, right eye, with poorly dilating pupil Procedure Description: CATARACT SURGERY OPERATIVE REPORT PREOPERATIVE DIAGNOSIS: 1. Nuclear/cortical cataract, right eye 2. Poorly dilating pupil, right eye POSTOPERATIVE DIAGNOSIS: Same OPERATION: 1. Cataract extraction using phacoemulsification with posterior chamber intraocular lens implant, right eye. 2. Pupillary dilation and iris stabilization using Malyugin Ring IOL: IOL Seismic Prospecting Supervisor/Model: [employer] Amos / UNA Tecnis [id number] IOL Power: + 20.5 diopters IOL Serial Number: [id number] Optic Diameter: 6.0mm Haptic/Overall Diameter: 13.0mm PHACO INFO: Thad Centurion Vision System with OZil and Active Fluidics Cumulative Dispersed Energy (CDE): 11.08 seconds SURGEON: Taiwo Tran MD, NATAN ANESTHESIA: Monitored Anesthesia Care (MAC), with local sub-tenon's anesthetic infiltration COMPLICATIONS: None SPECIMENS: None INDICATIONS FOR PROCEDURE: The patient is a 71-year-old gentleman with history of diminished visual acuity in both eyes secondary to the development of bilateral cataracts. He has already undergone cataract surgery in the left eye and is doing postoperatively. He now presents for cataract surgery in the right eye. PROCEDURE: The correct surgical eye was identified and marked as the right eye and the pupil was dilated in the preoperative area using mydriatics and cycloplegics. The dilated pupil size was 4.0 mm. He elected to proceed without oral sedation.. The patient was brought to the operating room where cardiopulmonary monitoring was instituted and surgical time-out was performed, confirming the correct operative eye and IOL power. Topical anesthesia was administered and ophthalmic povidone-iodine 5% was instilled into the conjunctival fornices. Lidocaine gel was applied to the cornea and the jorje-ocular area was prepped with Betadine 10% solution and draped in the usual sterile fashion for intraocular surgery, including an aperture drape. A Tegaderm transparent film dressing was cut in half and used to cover the lashes and lid margins. Care was taken to sequester the lashes and lid margins under the Tegaderm dressing. A lid speculum was placed between the lids of the operative eye and the Thad LuxOR Revalia operating microscope was maneuvered into position. Orquidea scissors were then used to make a conjunctival buttonhole approximately 6mm posterior to the limbus in the inferonasal quadrant. Blunt dissection was carried out to expose bare sclera, and a blunt-tipped sub-tenon?s anesthesia cannula was introduced and passed posteriorly along the globe where non-preserved plain lidocaine was injected into posterior sub-Tenon?s space. A sideport knife was used to make a paracentesis port inferiortemporally. Intraocular phenylephrine/lidocaine was injected in the anterior chamber. The anterior chamber was filled with viscoelastic. A keratome knife was used to construct a 2-plane near-clear corneal tunnel extending 2.0mm into clear cornea superiortemporally. A 7.0 mm Malyugin Ring was then inserted into the pupillary space and engaged with the Kuglen hook. A flap was raised on the anterior capsule and capsulorhexis forceps were used to complete a continuous curvilinear capsulorhexis of 5.5 mm. Balanced salt solution was then used to perform cortical cleaving hydrodissection and nuclear hydrodelineation until the lens could be freely rotated within the capsular bag. The lens nucleus was then disassembled and removed within the capsular bag and iris plane using phacoemulsification. Residual cortical material was removed using the 45-degree angled silicone I/A tip with 0.3mm port. The posterior capsule was carefully polished to remove as much residual lens epithelial cells as safely possible. The capsular bag was then inflated and the anterior chamber deepened with viscoelastic. The lens implant described above was inserted into the capsular bag using the UNA Pokagon Injector. A Kuglen hook was used to dial the IOL into position. The Malyugin Ring was removed in the reverse order of its insertion. Residual viscoelastic was then removed first from posterior to the IOL, then from the anterior chamber using the I/A handpiece. The lens implant was noted to center nicely within the capsular bag. The incisions were stromally hydrated, and the anterior chamber was reformed using BSS. Then 0.5cc of moxifloxacin 1.0mg/ml were injected into the capsular bag and anterior chamber. The incisions were checked with a Weck spear and found to be secure. Several drops of ophthalmic povidone-iodine 5% were then applied to the eye followed by two drops of Imprimis combination prednisolone/moxifloxacin/nepafenac solution. The drapes were removed and a clear plastic protective eye shield was placed over the eye. The patient was then returned to Same Day Surgery in stable condition.
[2022-03-31 13:55] VITALS: BP 141/88; PULSE 83; RESP 16; TEMP 36.5; O2SAT 100
--- NOTE | 2022-03-31 14:09 | W.ANESPOSTOP ---
Postoperative Evaluation Date, Time and Location Date Performed: 03/31/22 Time Performed: 14:09 Patient Location: Day Surgery Unit Vital Signs Most Recent Imported Vital Signs: Most Recent Vital Signs Temp Pulse Resp BP Pulse Ox 36.5 C 83 16 141/88 H 100 03/31/22 13:55 03/31/22 13:55 03/31/22 13:55 03/31/22 13:55 03/31/22 13:55 Pain Score Most Recent Pain Score: Most Recent Pain Score Pain Level 0 03/31/22 13:55 Assessment Mental Status: Awake (Alert & Oriented to Patient Baseline) Airway and Respiratory Function: Patent airway with normal (patient baseline) respiratory exam Cardiovascular Function: Hemodynamically Stable Hydration Status: Adequately Hydrated Nausea & Vomiting: No Nausea or Vomiting Pain: Pt. Denies Any Pain Peripheral Nerve Block: Patient did not receive a nerve block
== END 2022-03-31 14:25 | disposition home or self-care (01) ==
LOC: SUR 11:15
PROVIDERS: Visit Provider Ophthalmology
PROC: (CPT 66982; principal; 2022-03-31 14:30)
DX: H25.041 Posterior subcapsular polar age-related cataract, right eye (principal); H57.03 Miosis
CPT/HCPCS: 66982; V2632

== ENCOUNTER 2022-09-01 06:07 | Day surgery (SDC) | payer MEDICARE, BC, SELFPAY ==
[2022-09-01] VITALS (10 sets, daily range): BP systolic 103–136; BP diastolic 67–101; PULSE 65–86; RESP 12–17; TEMP 36.2–36.7; O2SAT 96–100; BMI 17.7
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
[2022-09-01] MEDS: Lactated Ringers 1,000 ML 80 ML IV (07:05)
[2022-09-01] MEDS: Insulin REGULAR-Human 100 UNITS/ML UNIT 10 UNITS SC (07:25)
[2022-09-01] MEDS: CLINDAMYCIN 600 MG/50 ML BAG 100 MG IVPB (07:39)
[2022-09-01] MEDS: Bacitracin 1 PACKET (08:17)
[2022-09-01] MEDS: Bupivacaine 0.25% Pres-Free 30 ML VIAL (08:17)
--- NOTE | 2022-09-01 08:20 | W.PM.DSUDISC ---
Date of service: 09/01/22 Time of Service: 08:20 Discharge Plan Disposition Patient Disposition: Home Condition: Stable Discharge Details Attending Provider: Rafat Harry Home Meds and New Rx's Prescriptions: New oxycodone 5 mg tablet 5 - 10 mg PO QID MDD 8 PRN (Reason: pain) Qty: 40 0RF Rx Instructions: may have 5 to 10 mg as needed Discontinued oxycodone 5 mg Capsule 5 mg PO TID PRN No Action Glucerna Liquid PO prochlorperazine maleate [Compazine] 10 mg tablet 10 mg PO Q6H PRN buprenorphine-naloxone [Suboxone] 8-2 mg film 1 film buccal DAILY diphenhydramine HCl [Benadryl Allergy] 25 mg tablet 25 mg PO QHS PRN docusate sodium [Colace] 100 mg capsule 100 mg PO DAILY rosuvastatin 20 mg tablet 40 mg PO DAILY Jardiance 25 mg tablet 25 mg PO DAILY dronabinol 2.5 mg capsule 2.5 mg PO BID Rx Instructions: administer before 2 capsules lunch and 1 capsule evening meal/dinner loperamide 2 mg Capsule 2 - 4 mg PO Q4H PRN Rx Instructions: administer after each loose stool until symptoms controlled; do not exceed 8 mg per 24 hrs Nutra/Shake Liquid 240 ml PO BID prochlorperazine maleate 10 mg Tablet 10 mg PO Q6H PRN diltiazem HCl 120 mg Capsule,Extended Release 24 Hr 120 mg PO DAILY gabapentin 300 mg Capsule 300 mg PO TID omeprazole 20 mg Capsule,Delayed Release(Dr/Ec) 20 mg PO DAILY peg 400-propylene glycol 0.4-0.3 % Drops 2 drp OPHTHALMIC (EYE) QID Eye Lubricant Ointment 1 applic OPHTHALMIC (EYE) HS Rx Instructions: while awake; not to exceed 16 doses per 24 hour period insulin glargine 100 unit/mL (3 mL) Insulin Pen 18 unit SUBCUT DAILY Creon 24,000-76,000 -120,000 unit Capsule,Delayed Release(Dr/Ec) 4 cap PO TID Rx Instructions: administer with meals and/or snacks cholecalciferol (vitamin D3) 25 mcg (1,000 unit) Capsule 25 mcg PO DAILY Mouth Rinse Mouthwash 1 ea mucous membrane BID amlodipine 5 MG tablet 5 mg PO DAILY Patient Comments: pt. states he has not taken in a long time, 09/01/22 cholecalciferol (vitamin D3) 1,000 UNITS tablet 1 tab PO DAILY Discharge Instructions Additional Instructions: no lifting over 10 pounds for 1 week may shower and remove gauze dressings 09/02 wear scrotal support/tight undergarments for @ 1 week ice pack to scrotum while awake (bag of frozen peas works well) followup @ 2 weeks Activity:: no lifting over 10 pounds for 1 week Remove Dressings/Wound Care:: 24 hours Shower/Bathe:: 24 hours Diet:: As Tolerated Discharge Orders Discharge Orders: Discharge Order (Routine); Ordered 09/01/22 Ordered By: Rafat Harry DS: Diagnosis Discharge Diagnosis (1) Right hydrocele: Status: Acute
--- NOTE | 2022-09-01 08:30 | W.PM.OP ---
Date of service: 09/01/22 Time of Service: 08:30 Operative Note Operative Note DATE OF PROCEDURE: 09/01/22 PRE-OP DIAGNOSIS: right hydrocele POST-OP DIAGNOSIS: same PROCEDURE: right hydrocelectomy SURGEON: Rafat Harry ANESTHESIA TYPE: General LMA/ETT Refer to Anesthesia Record ESTIMATED BLOOD LOSS: 10 PATHOLOGY: none sent COMPLICATIONS: None Patient was transported to: PACU Patient's condition: stable Implants: none Indications: This is a 72-year-old gentleman who has right scrotal swelling which is not really painful, but makes it difficult to sit at times. He was evaluated with a scrotal ultrasound which showed a hydrocele with no evidence of hernia. Since he is symptomatic, he presents for hydrocelectomy Findings: Hydrocele: With no palpable hernia Procedure Description: The patient was to the operating room on 09/01/2022. He was given preoperative IV antibiotics. After successful induction of general anesthesia, he was placed in the supine position. His genitalia was prepped and draped. A right-sided scrotal field block was performed using quarter percent Marcaine without epinephrine. A transverse right scrotal incision was made and extended down through the subcutaneous tissue and dartos muscle. We then came upon a fluid-filled sac. As the sac was palpated, the fluid actually resolved. We were able to pull the right testis still within the tunica vaginalis up through the incision. We opened the tunica vaginalis anteriorly. I passed my finger up with the remainder of the tunica vaginalis but I did not feel any defects or obvious hernia. The edges of the tunica vaginalis were then reapproximated behind the testis using a short segment of running 3-0 chromic suture. A cord block was performed using quarter percent Marcaine. The testis was then delivered back within the right hemiscrotum. The dartos muscle was reapproximated with a segment of running 3-0 chromic. The skin was reapproximated using a simple interrupted 4-0 Vicryl suture line. A fluff dressing was applied to the wound followed by a scrotal support. He tolerated the procedure well with no complications.
[2022-09-01] MEDS: oxyCODONE 5 MG TAB PO (10:13)
--- NOTE | 2022-09-01 10:22 | W.ANESPOSTOP ---
Postoperative Evaluation Date, Time and Location Date Performed: 09/01/22 Time Performed: :22 Patient Location: Day Surgery Unit Vital Signs Most Recent Imported Vital Signs: Most Recent Vital Signs Temp Pulse Resp BP Pulse Ox 36.2 C L 78 16 132/88 100 09/01/22 09:28 09/01/22 09:28 09/01/22 09:28 09/01/22 09:28 09/01/22 09:28 Pain Score Most Recent Pain Score: Most Recent Pain Score Pain Level 0 09/01/22 09:28 Assessment Mental Status: Awake (Alert & Oriented to Patient Baseline) Airway and Respiratory Function: Patent airway with normal (patient baseline) respiratory exam Cardiovascular Function: Hemodynamically Stable Hydration Status: Adequately Hydrated Nausea & Vomiting: No Nausea or Vomiting Pain: Pain is tolerable per patient Peripheral Nerve Block: Patient did not receive a nerve block Postoperative Comments:: Had discussed his insulin, he did receive education on hypoglycemia.
== END 2022-09-01 10:53 | disposition home or self-care (01) ==
PROVIDERS: Visit Provider Urology
PROC: (CPT 55040; principal; 2022-09-01 07:30)
DX: N43.3 Hydrocele, unspecified (principal); E11.9 Type 2 diabetes mellitus without complications; I10 Essential (primary) hypertension; Z79.4 Long term (current) use of insulin
CPT/HCPCS: 55040; J1100; J2405; J2704; J3475

== ENCOUNTER 2022-09-15 01:26 | Outpatient (CLI) | payer MEDICARE, BC, SELFPAY ==
--- NOTE | 2022-09-15 | DI.CT_ITS ---
Exam(s) CT CHEST W EXAM: CT CHEST W CLINICAL HISTORY: NEOPLASM OF PANCREAS,C25.0,F/U 06/2022 INDETERMINATE LUNG NODULE TECHNIQUE: Imaging Protocol: Axial computed tomography images with coronal and sagittal reformatted images were created and reviewed CONTRAST MATERIAL: Intravenous: Omnipaque 350Contrast volume:70 mL. COMPARISON: CT THORACIC AND LUMBAR SPINE WO from 11/10/2017 CT CHEST ABD PELVIS WITH CONTRAST from 11/10/[address] CHEST ABDOMEN PELVIS W CONTRAST (GENERIC) from 06/19/2022 FINDINGS: Tracheobronchial tree: Patent where visualized. Pulmonary parenchyma: No consolidation or dominant measurable mass. There is a stable 6 mm nodule in the anterior aspect of the left lower lobe. The irregular density in the medial aspect of the left l ower lobe is unchanged compared to the prior examination. There are small pleural based areas of sca r nodular scarring in the lung bases. Mediastinum and Ginny: No dominant adenopathy or fluid collection. The esophagus is unremarkable. Thyroid gland: Unremarkable. Pleura: No effusion or pneumothorax. Heart: Cardiomegaly. Prominent coronary artery calcification is present. No pericardial effusion. Aorta: Thoracic aorta non-dilated. Atherosclerosis. No evidence of dissection. Pulmonary arteries: Due to the timing of the bolus, pulmonary artery opacification is suboptimal. No large central pulmonary embolus is seen. Upper abdomen: Postsurgical changes in the upper abdomen. There is a question of a heterogeneous so ft tissue mass interposed between the SMV/portal vein confluence and the superior mesenteric artery. It is incompletely imaged on this examination. It measures approximately 2.9 x 2.6 cm. Lymph nodes: Within normal limits. Bones: Within normal limits for the patient's age. Soft tissues: Unremarkable. IMPRESSION: 1. Stable irregular density in the left lower lobe medially. 2. No acute pulmonary process. 3. Heterogeneous soft tissue mass interposed between the SMV/portal vein confluence in the superior m esenteric artery. It measures approximately 2.9 x 2.6 cm and is incompletely imaged on this examinat ion. A CT scan of the abdomen is recommended for further evaluation. 4. Postsurgical changes in the upper abdomen. RADIATION DOSE DELIVERED: 352.09mGy.cm Total DLP DATA REPOSITORY: All CT scans at this facility are submitted to the National Radiology Data Registry (NRDR) Dose Index Registry (DIR) with the [employer] (ACR). RADIATION OPTIMIZATION: All CT scans at this facility use at least one of these dose optimization te chniques: automated exposure control; mA and/or kV adjustment per patient size (includes targeted exa ms where dose is matched to clinical indication); or iterative reconstruction.
[2022-09-15 14:48] LABS: Abs Immature Grans 0.02 10^3/uL (0.0-0.06); Absolute Basophil Count 0.03 10^3/uL (0.0-0.2); Absolute Eosinophil Count 0.12 10^3/uL (0.0-0.7); Absolute Monocyte Count 0.38 10^3/uL (0.1-0.8); Absolute Neutrophil Count 4.09 10^3/uL (1.2-6.7); Basophils % 0.6; Eosinophils % 2.3; HCT 40.6 % (40.0-50.0); HGB 13.4 g/dL (13.5-17.5); Immature Grans % 0.4; Lymphocytes % 11.5; MCH 32.1 pg (27.0-33.0); MCV 97 fL (80-95); MPV 8.4 fL (8.0-11.0); Monocytes % 7.3; Neutrophils % 77.9; Platelet Count 170 10^3/uL (130-400); RBC 4.17 10^6/uL (4.36-5.78); RDW 12.3 % (11.8-14.1); RDW-SD 44.4 fL; WBC 5.24 10^3/uL (4.4-10.8)
[2022-09-15 15:01] LABS: ALT 28 U/L (16-63); AST 21 U/L (15-37); Albumin 3.4 g/dL (3.4-5.0); Alkaline Phosphatase 101 U/L (46-116); BUN 12 mg/dL (7-18); Bilirubin, Total 0.7 mg/dL (0.2-1.0); Calcium 8.9 mg/dL (8.5-10.1); Chloride 103 mmol/L (98-107); Estimated GFR 78.98 (mL/min/1.73m2); Glucose 346 mg/dL (74-106); Potassium 4.5 mmol/L (3.5-5.1); Sodium 135 mmol/L (136-145)
[2022-09-15] MEDS: Omnipaque 350 MG/ML 500 ML BTL-Imaging package IJ (15:11)
[2022-09-15] MEDS: Normal Saline - Diluent 50 ML VIAL IJ (15:12)
[2022-09-17 10:52] LABS: CA 19-9 1231 U/mL (<35)
== END 2022-09-15 01:46 ==
PROVIDERS: Visit Provider Internal Medicine Hematology & Oncology
DX: C25.0 Malignant neoplasm of head of pancreas (principal); Z98.890 Other specified postprocedural states; R91.8 Other nonspecific abnormal finding of lung field
CPT/HCPCS: 80053; 71260; 85025; 86301

== ENCOUNTER → 2022-09-29 07:59 | Outpatient (BNVA) | payer MEDICARE, BC, SELFPAY | PROVIDERS: Visit Provider Nurse Practitioner Gerontology | DX: Z48.816 Encounter for surgical aftercare following surgery on the genitourinary system (principal); Z87.448 Personal history of other diseases of urinary system | CPT/HCPCS: 99213 ==

== ENCOUNTER → 2022-12-01 12:54 | Outpatient (BNVA) | payer MEDICARE, BC, SELFPAY | PROVIDERS: Visit Provider Nurse Practitioner Gerontology | DX: N50.89 Other specified disorders of the male genital organs (principal) | CPT/HCPCS: 99213 ==

== ENCOUNTER 2022-12-05 00:55 | Outpatient (RCR) | payer MEDICARE, BC, SELFPAY ==
[2022-11-21 08:48] LABS: Abs Immature Grans 0.01 10^3/uL (0.0-0.06); Absolute Basophil Count 0.03 10^3/uL (0.0-0.2); Absolute Eosinophil Count 0.19 10^3/uL (0.0-0.7); Absolute Lymphocyte Count 0.51 10^3/uL (1.2-3.4); Absolute Monocyte Count 0.46 10^3/uL (0.1-0.8); Absolute Neutrophil Count 3.77 10^3/uL (1.2-6.7); Basophils % 0.6; Eosinophils % 3.8; HCT 36.1 % (40.0-50.0); HGB 12.1 g/dL (13.5-17.5); Immature Grans % 0.2; Lymphocytes % 10.3; MCH 31.7 pg (27.0-33.0); MCHC 33.5 % (32.0-36.0); MCV 95 fL (80-95); MPV 8.9 fL (8.0-11.0); Monocytes % 9.3; Neutrophils % 75.8; Platelet Count 137 10^3/uL (130-400); RBC 3.82 10^6/uL (4.36-5.78); RDW 13.7 % (11.8-14.1); RDW-SD 47.5 fL; WBC 4.97 10^3/uL (4.4-10.8)
[2022-11-21 09:11] LABS: ALT 20 U/L (16-63); AST 15 U/L (15-37); Albumin 3.2 g/dL (3.4-5.0); Alkaline Phosphatase 91 U/L (46-116); Anion Gap 8.5 mmol/L (3-11); BUN 16 mg/dL (7-18); Bilirubin, Total 0.8 mg/dL (0.2-1.0); CO2 26.5 mmol/L (21.0-32.0); CREATININE 0.8 mg/dL (0.70-1.30); Calcium 8.5 mg/dL (8.5-10.1); Chloride 105 mmol/L (98-107); Estimated GFR 92.87 (mL/min/1.73m2); Glucose 205 mg/dL (74-106); Potassium 3.9 mmol/L (3.5-5.1); Sodium 140 mmol/L (136-145); Total Protein 6.4 g/dL (6.4-8.2)
[2022-11-24 12:16] LABS: CA 19-9 1780 U/mL (<35)
[2022-11-28 09:28] LABS: Abs Immature Grans 0.01 10^3/uL (0.0-0.06); Absolute Basophil Count 0.01 10^3/uL (0.0-0.2); Absolute Eosinophil Count 0.02 10^3/uL (0.0-0.7); Absolute Lymphocyte Count 0.29 10^3/uL (1.2-3.4); Absolute Monocyte Count 0.31 10^3/uL (0.1-0.8); Absolute Neutrophil Count 3.54 10^3/uL (1.2-6.7); Basophils % 0.2; Eosinophils % 0.5; HCT 34.8 % (40.0-50.0); HGB 11.5 g/dL (13.5-17.5); Immature Grans % 0.2; Lymphocytes % 6.9; MCV 94 fL (80-95); MPV 9.3 fL (8.0-11.0); Monocytes % 7.4; Neutrophils % 84.8; RBC 3.71 10^6/uL (4.36-5.78); RDW 13.1 % (11.8-14.1); RDW-SD 45.1 fL; WBC 4.18 10^3/uL (4.4-10.8)
[2022-11-28 09:39] LABS: Platelet Count 69 10^3/uL (130-400)
[2022-11-28 09:43] LABS: ALT 12 U/L (16-63); AST 16 U/L (15-37); Albumin 2.6 g/dL (3.4-5.0); Alkaline Phosphatase 86 U/L (46-116); Anion Gap 6.8 mmol/L (3-11); BUN 17 mg/dL (7-18); Bilirubin, Total 0.8 mg/dL (0.2-1.0); CO2 28.2 mmol/L (21.0-32.0); CREATININE 0.6 mg/dL (0.70-1.30); Calcium 8.6 mg/dL (8.5-10.1); Chloride 107 mmol/L (98-107); Glucose 123 mg/dL (74-106); Potassium 3.5 mmol/L (3.5-5.1); Sodium 142 mmol/L (136-145); Total Protein 6.2 g/dL (6.4-8.2)
[2022-11-28] MEDS: Normal Saline Flush 10 ML SYR IVP (11:41)
[2022-11-28] MEDS: Heparin 500 UNITS/5 ML SYRINGE IV (11:41)
[2022-12-05] MEDS: Normal Saline Flush 10 ML SYR IVP (09:51)
[2022-12-05 10:05] LABS: Abs Immature Grans 0.01 10^3/uL (0.0-0.06); Absolute Basophil Count 0.04 10^3/uL (0.0-0.2); Absolute Eosinophil Count 0.06 10^3/uL (0.0-0.7); Absolute Lymphocyte Count 0.54 10^3/uL (1.2-3.4); Absolute Monocyte Count 0.48 10^3/uL (0.1-0.8); Absolute Neutrophil Count 3.51 10^3/uL (1.2-6.7); Basophils % 0.9; Eosinophils % 1.3; HCT 34.2 % (40.0-50.0); HGB 11.4 g/dL (13.5-17.5); Immature Grans % 0.2; Lymphocytes % 11.6; MCH 31.7 pg (27.0-33.0); MCHC 33.3 % (32.0-36.0); MCV 95 fL (80-95); MPV 9.1 fL (8.0-11.0); Monocytes % 10.3; Neutrophils % 75.7; Platelet Count 264 10^3/uL (130-400); RDW 13.8 % (11.8-14.1); RDW-SD 47.1 fL; WBC 4.64 10^3/uL (4.4-10.8)
[2022-12-05 10:33] LABS: ALT 60 U/L (16-63); AST 103 U/L (15-37); Albumin 2.9 g/dL (3.4-5.0); Alkaline Phosphatase 117 U/L (46-116); Anion Gap 6.7 mmol/L (3-11); BUN 15 mg/dL (7-18); Bilirubin, Total 0.7 mg/dL (0.2-1.0); CO2 28.3 mmol/L (21.0-32.0); CREATININE 0.7 mg/dL (0.70-1.30); Calcium 8.3 mg/dL (8.5-10.1); Chloride 104 mmol/L (98-107); Estimated GFR 96.69 (mL/min/1.73m2); Glucose 84 mg/dL (74-106); Potassium 3.7 mmol/L (3.5-5.1); Sodium 139 mmol/L (136-145); Total Protein 6.1 g/dL (6.4-8.2)
== END 2022-12-11 23:59 | disposition home or self-care (01) ==
LOC: INF 00:55
PROVIDERS: Visit Provider Internal Medicine Hematology & Oncology
DX: C25.0 Malignant neoplasm of head of pancreas (principal); Z45.2 Encounter for adjustment and management of vascular access device
CPT/HCPCS: 36591; 80053; 85025; 86301

== ENCOUNTER → 2022-12-09 01:22 | Outpatient (CLI) | payer MEDICARE, BC, SELFPAY ==
--- NOTE | 2022-12-09 07:00 | DI.US_ITS ---
Exam(s) US SCROTUM EXAM: US SCROTUM CLINICAL HISTORY: Right scrotum swelling ? hernia, swelling rt half of scrotum, N50.89. TECHNIQUE: Scrotal ultrasound performed using grayscale, color-flow and spectral Doppler analysis. COMPARISON: US US SCROTUM from 05/19/[address] CHEST ABDOMEN PELVIS W CONTRAST (GENERIC) from 06/19/[address] CHEST W from 09/15/2022 FINDINGS: Right testicle: 3.0 x 1.7 x 2.6 cm Echogenicity: Normal. Contour: Smooth. Mass: None seen. Microlithiasis: None. Hydrocele: There is a 5.9 x 1.9 x 1.5 cm hydrocele. There is also again seen fluid throughout the ri ght inguinal canal. There is also pelvic ascites present. Variocele: None. Hernia: No peristalsing bowel loop identified. Epididymis: There is a 2.1 x 1.8 x 1.5 cm epididymal head cyst. Left testicle: 2.8 x 1.9 x 2.2 cm Echogenicity: Normal. Contour: Smooth. Mass: None seen. Microlithiasis: None. Hydrocele: There is a 3.8 x 0.8 x 2.5 cm hydrocele. There is a 5 mm scrotal francisco present. Variocele: None. Hernia: No peristalsing bowel loop identified. Epididymis: Normal. There is a calcifications seen in the epididymis appendix. DOPPLER: Color: Symmetric and uniform, no hyperemia. IMPRESSION: 1. Pelvic ascites extending into the right inguinal canal and the right scrotum. 2. Bilateral hydroceles. 3. No evidence of a testicular mass. DATA REPOSITORY:
== END ==
PROVIDERS: Visit Provider Nurse Practitioner Gerontology
DX: N50.89 Other specified disorders of the male genital organs (principal)
CPT/HCPCS: 76870

== ENCOUNTER → 2022-12-23 08:06 | Outpatient (BNVA) | payer MEDICARE, BC, SELFPAY | PROVIDERS: Visit Provider Urology | DX: R18.8 Other ascites (principal) | CPT/HCPCS: 99443 ==

== ENCOUNTER 2023-01-02 01:38 | Outpatient (RCR) | payer MEDICARE, BC, SELFPAY ==
[2022-12-19] MEDS: Normal Saline Flush 10 ML SYR IVP (09:00)
[2022-12-19 09:03] LABS: Abs Immature Grans 0.02 10^3/uL (0.0-0.06); Absolute Basophil Count 0.03 10^3/uL (0.0-0.2); Absolute Lymphocyte Count 0.42 10^3/uL (1.2-3.4); Absolute Monocyte Count 0.74 10^3/uL (0.1-0.8); Absolute Neutrophil Count 3.72 10^3/uL (1.2-6.7); Basophils % 0.6; HCT 31.4 % (40.0-50.0); HGB 10.5 g/dL (13.5-17.5); Immature Grans % 0.4; Lymphocytes % 8.3; MCHC 33.4 % (32.0-36.0); MCV 96 fL (80-95); MPV 9.7 fL (8.0-11.0); Monocytes % 14.7; Platelet Count 165 10^3/uL (130-400); RBC 3.28 10^6/uL (4.36-5.78); RDW 14.8 % (11.8-14.1); RDW-SD 51.3 fL; WBC 5.03 10^3/uL (4.4-10.8)
[2022-12-19 09:24] LABS: ALT 53 U/L (16-63); AST 44 U/L (15-37); Albumin 2.5 g/dL (3.4-5.0); Alkaline Phosphatase 132 U/L (46-116); Anion Gap 6.2 mmol/L (3-11); BUN 11 mg/dL (7-18); Bilirubin, Total 0.7 mg/dL (0.2-1.0); CO2 26.8 mmol/L (21.0-32.0); CREATININE 0.9 mg/dL (0.70-1.30); Chloride 103 mmol/L (98-107); Estimated GFR 89.62 (mL/min/1.73m2); Glucose 149 mg/dL (74-106); Potassium 4.1 mmol/L (3.5-5.1); Sodium 136 mmol/L (136-145); Total Protein 5.7 g/dL (6.4-8.2)
[2022-12-19 10:53] LABS: Iron 43 ug/dL (65-175); Total Iron Binding Capacity 199 ug/dL (250-450); Transferrin Sat 22 % (20-55)
[2022-12-19 11:17] LABS: Vitamin D 25 Total 29.3 ng/mL (30-100)
[2022-12-19 11:20] LABS: Ferritin 133 ng/mL (26-388); Folate 16.5 ng/mL (8.6-20.0); Vitamin B12 464 pg/mL (193-986)
[2022-12-22 12:24] LABS: CA 19-9 669 U/mL (<35)
[2022-12-22 17:04] LABS: Free Retinol (Vitamin A) 13.2 mcg/dL (32.5-78.0)
[2023-01-02] MEDS: Normal Saline Flush 10 ML SYR IVP (08:57)
[2023-01-02 09:16] LABS: Abs Immature Grans 0.03 10^3/uL (0.0-0.06); Absolute Basophil Count 0.03 10^3/uL (0.0-0.2); Absolute Eosinophil Count 0.08 10^3/uL (0.0-0.7); Absolute Lymphocyte Count 0.37 10^3/uL (1.2-3.4); Absolute Monocyte Count 0.68 10^3/uL (0.1-0.8); Absolute Neutrophil Count 5.71 10^3/uL (1.2-6.7); Basophils % 0.4; Eosinophils % 1.2; HCT 32.4 % (40.0-50.0); HGB 10.6 g/dL (13.5-17.5); Immature Grans % 0.4; Lymphocytes % 5.4; MCH 31.4 pg (27.0-33.0); MCHC 32.7 % (32.0-36.0); MCV 96 fL (80-95); MPV 9.2 fL (8.0-11.0); Monocytes % 9.9; Neutrophils % 82.7; Platelet Count 219 10^3/uL (130-400); RBC 3.38 10^6/uL (4.36-5.78); RDW 14.4 % (11.8-14.1); RDW-SD 50.6 fL
[2023-01-02 09:20] LABS: ALT 27 U/L (16-63); AST 20 U/L (15-37); Albumin 2.5 g/dL (3.4-5.0); Alkaline Phosphatase 131 U/L (46-116); Anion Gap 7.5 mmol/L (3-11); BUN 12 mg/dL (7-18); Bilirubin, Total 0.6 mg/dL (0.2-1.0); CO2 25.5 mmol/L (21.0-32.0); CREATININE 0.7 mg/dL (0.70-1.30); Calcium 8.3 mg/dL (8.5-10.1); Chloride 103 mmol/L (98-107); Estimated GFR 96.69 (mL/min/1.73m2); Glucose 151 mg/dL (74-106); Potassium 3.6 mmol/L (3.5-5.1); Sodium 136 mmol/L (136-145); Total Protein 5.9 g/dL (6.4-8.2)
[2023-01-05 12:45] LABS: CA 19-9 582 U/mL (<35)
== END 2023-01-10 23:59 | disposition home or self-care (01) ==
LOC: INF 01:38
PROVIDERS: Nurse Practitioner Family; Visit Provider Internal Medicine Hematology & Oncology
DX: C25.0 Malignant neoplasm of head of pancreas (principal); K86.89 Other specified diseases of pancreas; Z90.410 Acquired total absence of pancreas; Z90.49 Acquired absence of other specified parts of digestive tract
CPT/HCPCS: 36591; 80053; 82306; 82607; 82728; 82746; 83540; 83550; 84425; 84446; 84590; 85025; 86301

== ENCOUNTER → 2023-01-12 02:35 | Outpatient (CLI) | payer MEDICARE, BC, SELFPAY ==
--- NOTE | 2023-01-12 | DI.CT_ITS ---
Exam(s) CT CHEST/ABD/PEL W EXAM: CT CHEST/ABD/PEL W CLINICAL HISTORY: RECURENT PANCREATIC CA, ON CHEMO, RESTAGING EVALUATION,C25.0. TECHNIQUE: Imaging Protocol: Axial computed tomography images with coronal and sagittal reformatted images were created and reviewed CONTRAST MATERIAL: Intravenous: Omnipaque 350 Contrast volume:100 ml Oral: Yes. Oral contrast was also administered for bowel opacification. COMPARISON: CT THORACIC AND LUMBAR SPINE WO from 11/10/2017 CT CHEST ABD PELVIS WITH CONTRAST from 11/10/[address] CHEST W from 09/15/2022 FINDINGS: CHEST: Distal tip of the Port-A-Cath is in the lower SVC in satisfactory position. LUNGS: There are now small bilateral pleural effusions, right slightly larger than left and there are small infiltrates in both lower lobes, not previously present.. No new metastatic appearing nodules .a MEDIASTINUM: There is no hilar nor mediastinal adenopathy. Visualized thyroid unremarkable. CARDIAC: Heart size is normal. There is no pericardial effusion.Caliber of the thoracic aorta is wit hin normal limits. OSSEOUS: No significant osseous lesions.. ABDOMEN: There is now a large amount of ascites in the abdomen and pelvis. LIVER: Multiple cysts in the liver again noted. GALLBLADDER/BILIARY: Gallbladder again noted be surgically absent. There is a silastic stent at the level of the bili 0 enterostomy again noted. No prominent dilatation of intrahepatic ducts. The anna astic stent again appears to be discontinuous in the liver. PANCREAS: Abnormal tissue is again noted in casing the superior mesenteric vasculature. Pancreatic b ya and tail appear unremarkable. Pancreatic duct is not dilated. SPLEEN: Spleen is not enlarged. There are no intrasplenic lesions. Splenic and portal veins are mora nt. ADRENALS: There are no significant adrenal masses. KIDNEYS: Cysts in left kidney again noted measuring 4.5 x 4.8 cm. Does not require further workup. Smaller cysts are noted in the right kidney. No solid renal masses. There are tiny hyperdensities c onsistent with calculi in both kidneys, nonobstructive. Ureters are not dilated. ABDOMINAL AORTA: Calcified but not enlarged. LYMPH NODES: There is no retroperitoneal nor paraaortic adenopathy. ABDOMINAL WALL: No evidence of significant anterior abdominal wall nor inguinal hernia. GI: There is no evidence of bowel obstruction. PELVIS: LYMPH NODES: There is no intrapelvic nor inguinal adenopathy. GI: No evidence of appendicitis.No evidence of sigmoid diverticulitis. URINARY BLADDER: There is symmetrical uniform thickening of the urinary bladder wall. This may be ex aggerated by under distension. REPRODUCTIVE: Prostate not enlarged. OSSEOUS: No significant osseous lesions. No fractures. IMPRESSION: 1. Compared to prior abdominal CT scan of October 2017 there has been interval Billroth type surgery wit h gastroenterostomy/cholecystectomy/and biliaryenterostomy with silastic stent across this and resect ion of the pancreatic head. There is abnormal tissue in the surgical bed which may be neoplastic. T his insert colles the proximal SMA. There is prominent amount of ascites in the abdomen and pelvis. No obvious true bowel obstruction nor free air nor abscess. 2. Multiple hypodensities in the liver are again noted which have the appearance of cysts and are unc hanged from CT scan of 09/15/2022 (chest CT scan at that time) but were not evident on CT scan of 201 8. 3. There are now small bilateral pleural effusions, right larger than left. Also some infiltrate in both lung bases now evident. These lung base findings were not evident on the CT scan of 09/15/2022. RADIATION DOSE DELIVERED: 1,014.18mGy.cm Total DLP DATA REPOSITORY: All CT scans at this facility are submitted to the National Radiology Data Registry (NRDR) Dose Index Registry (DIR) with the [employer] (ACR). RADIATION OPTIMIZATION: All CT scans at this facility use at least one of these dose optimization te chniques: automated exposure control; mA and/or kV adjustment per patient size (includes targeted exa ms where dose is matched to clinical indication); or iterative reconstruction.
[2023-01-12] MEDS: Omnipaque 350 MG/ML 100 ML BTL IJ (14:00)
[2023-01-12] MEDS: Normal Saline - Diluent 50 ML VIAL IJ (14:00)
[2023-01-12] MEDS: Barium Sulfate 2% W/V-Berry Smoothie 450 ML BTL PO (14:03)
[2023-01-12] MEDS: Normal Saline Flush 10 ML SYR IVP (14:04)
== END ==
PROVIDERS: Visit Provider Internal Medicine Hematology & Oncology
DX: Z98.890 Other specified postprocedural states (principal); R18.8 Other ascites; K76.89 Other specified diseases of liver; R91.8 Other nonspecific abnormal finding of lung field; C25.0 Malignant neoplasm of head of pancreas
CPT/HCPCS: 36591; 74177; 71260; J1642; J3490

== ENCOUNTER 2023-01-16 10:08 | Outpatient (REF) | payer MEDICARE, BC, SELFPAY ==
[2023-01-16 10:42] LABS: ALT 25 U/L (16-63); AST 21 U/L (15-37); Albumin 2.2 g/dL (3.4-5.0); Alkaline Phosphatase 157 U/L (46-116); Anion Gap 5.1 mmol/L (3-11); BUN 9 mg/dL (7-18); Bilirubin, Total 0.5 mg/dL (0.2-1.0); CO2 26.9 mmol/L (21.0-32.0); CREATININE 0.7 mg/dL (0.70-1.30); Calcium 8.1 mg/dL (8.5-10.1); Chloride 102 mmol/L (98-107); Estimated GFR 96.69 (mL/min/1.73m2); Glucose 142 mg/dL (74-106); Potassium 3.9 mmol/L (3.5-5.1); Sodium 134 mmol/L (136-145); Total Protein 5.6 g/dL (6.4-8.2)
[2023-01-16 10:46] LABS: Abs Immature Grans 0.01 10^3/uL (0.0-0.06); Absolute Basophil Count 0.02 10^3/uL (0.0-0.2); Absolute Eosinophil Count 0.07 10^3/uL (0.0-0.7); Absolute Lymphocyte Count 0.43 10^3/uL (1.2-3.4); Absolute Monocyte Count 0.65 10^3/uL (0.1-0.8); Absolute Neutrophil Count 5.24 10^3/uL (1.2-6.7); Basophils % 0.3; Eosinophils % 1.1; HCT 31.1 % (40.0-50.0); Immature Grans % 0.2; Lymphocytes % 6.7; MCH 30.6 pg (27.0-33.0); MCHC 32.2 % (32.0-36.0); MCV 95 fL (80-95); MPV 9.7 fL (8.0-11.0); Monocytes % 10.1; Neutrophils % 81.6; Platelet Count 204 10^3/uL (130-400); RBC 3.27 10^6/uL (4.36-5.78); RDW 14.3 % (11.8-14.1); RDW-SD 49.1 fL; WBC 6.42 10^3/uL (4.4-10.8)
[2023-01-19 10:50] LABS: CA 19-9 492 U/mL (<35)
== END 2023-01-16 10:09 | disposition home or self-care (01) ==
LOC: LBN 10:08
PROVIDERS: Visit Provider Internal Medicine Hematology & Oncology
DX: C25.0 Malignant neoplasm of head of pancreas (principal)
CPT/HCPCS: 80053; 85025; 86301

== ENCOUNTER 2023-01-30 01:43 | Outpatient (RCR) | payer MEDICARE, BC, SELFPAY ==
[2023-01-12] MEDS: Normal Saline Flush 10 ML SYR IVP (14:24)
[2023-01-12] MEDS: Heparin 500 UNITS/5 ML SYRINGE IV (14:24)
[2023-01-30] MEDS: Normal Saline Flush 10 ML SYR IVP (09:04)
[2023-01-30 09:22] LABS: Abs Immature Grans 0.04 10^3/uL (0.0-0.06); Absolute Basophil Count 0.04 10^3/uL (0.0-0.2); Absolute Eosinophil Count 0.02 10^3/uL (0.0-0.7); Absolute Lymphocyte Count 0.25 10^3/uL (1.2-3.4); Absolute Monocyte Count 0.78 10^3/uL (0.1-0.8); Absolute Neutrophil Count 6.54 10^3/uL (1.2-6.7); Basophils % 0.5; Eosinophils % 0.3; HCT 32.5 % (40.0-50.0); HGB 10.5 g/dL (13.5-17.5); Immature Grans % 0.5; Lymphocytes % 3.3; MCH 30.4 pg (27.0-33.0); MCHC 32.3 % (32.0-36.0); MCV 94 fL (80-95); MPV 9.2 fL (8.0-11.0); Monocytes % 10.2; Neutrophils % 85.2; Platelet Count 171 10^3/uL (130-400); RBC 3.45 10^6/uL (4.36-5.78); RDW-SD 47.7 fL; WBC 7.67 10^3/uL (4.4-10.8)
[2023-01-30 09:34] LABS: ALT 25 U/L (16-63); AST 24 U/L (15-37); Albumin 2.3 g/dL (3.4-5.0); Alkaline Phosphatase 159 U/L (46-116); Anion Gap 8.9 mmol/L (3-11); BUN 10 mg/dL (7-18); Bilirubin, Total 0.6 mg/dL (0.2-1.0); CO2 26.1 mmol/L (21.0-32.0); CREATININE 0.7 mg/dL (0.70-1.30); Calcium 8.1 mg/dL (8.5-10.1); Chloride 101 mmol/L (98-107); Estimated GFR 96.69 (mL/min/1.73m2); Glucose 88 mg/dL (74-106); Potassium 4.1 mmol/L (3.5-5.1); Sodium 136 mmol/L (136-145)
[2023-02-02 16:31] LABS: CA 19-9 400 U/mL (<35)
== END 2023-02-10 23:59 | disposition home or self-care (01) ==
LOC: INF 01:43
PROVIDERS: Visit Provider Internal Medicine Hematology & Oncology
DX: C25.0 Malignant neoplasm of head of pancreas (principal); Z45.2 Encounter for adjustment and management of vascular access device
CPT/HCPCS: 36591; 80053; 85025; 86301; J1642

== ENCOUNTER 2023-02-25 02:02 | Outpatient (RCR) | payer MEDICARE, BC, SELFPAY ==
[2023-02-25] MEDS: Normal Saline Flush 10 ML SYR IVP (12:49)
[2023-02-25 12:59] LABS: Abs Immature Grans 0.03 10^3/uL (0.0-0.06); Absolute Basophil Count 0.03 10^3/uL (0.0-0.2); Absolute Eosinophil Count 0.02 10^3/uL (0.0-0.7); Absolute Lymphocyte Count 0.47 10^3/uL (1.2-3.4); Absolute Monocyte Count 0.68 10^3/uL (0.1-0.8); Absolute Neutrophil Count 4.92 10^3/uL (1.2-6.7); Basophils % 0.5; Eosinophils % 0.3; HCT 34.2 % (40.0-50.0); HGB 10.6 g/dL (13.5-17.5); Immature Grans % 0.5; Lymphocytes % 7.6; MCV 94 fL (80-95); MPV 9.1 fL (8.0-11.0); Monocytes % 11.1; Platelet Count 265 10^3/uL (130-400); RBC 3.65 10^6/uL (4.36-5.78); RDW 14.9 % (11.8-14.1); WBC 6.15 10^3/uL (4.4-10.8)
[2023-02-25 13:14] LABS: ALT 19 U/L (16-63); AST 17 U/L (15-37); Albumin 2.2 g/dL (3.4-5.0); Alkaline Phosphatase 145 U/L (46-116); Anion Gap 4.5 mmol/L (3-11); BUN 13 mg/dL (7-18); Bilirubin, Total 0.6 mg/dL (0.2-1.0); CO2 27.5 mmol/L (21.0-32.0); Calcium 8.3 mg/dL (8.5-10.1); Chloride 103 mmol/L (98-107); Estimated GFR 78.98 (mL/min/1.73m2); Glucose 312 mg/dL (74-106); Potassium 4.3 mmol/L (3.5-5.1); Sodium 135 mmol/L (136-145); Total Protein 5.9 g/dL (6.4-8.2)
[2023-02-26 11:47] LABS: CA 19-9 431 U/mL (<35)
== END 2023-03-12 23:59 | disposition home or self-care (01) ==
LOC: INF 02:02
PROVIDERS: Visit Provider Internal Medicine Hematology & Oncology
DX: C25.0 Malignant neoplasm of head of pancreas (principal); Z45.2 Encounter for adjustment and management of vascular access device
CPT/HCPCS: 36591; 80053; 85025; 86301

== ENCOUNTER → 2023-04-03 00:56 | Outpatient (CLI) | payer MEDICARE, BC, SELFPAY ==
--- NOTE | 2023-04-03 | DI.CT_ITS ---
Exam(s) CT CHEST/ABD/PEL W EXAM: CT CHEST/ABD/PEL W CLINICAL HISTORY: NE AUTH# [id number] PANCREATIC CANCER METS TO OTHER SITES TECHNIQUE: Imaging Protocol: Axial computed tomography images with coronal and sagittal reformatted images were created and reviewed CONTRAST MATERIAL: Intravenous: Omnipaque 350 contrast volume:100 mL Oral: Yes COMPARISON: CT CT CHEST/ABD/PEL W from 01/12/2023 FINDINGS: CHEST: Tracheobronchial tree: Patent where visualized. Pulmonary parenchyma: There is a persistent moderate right pleural effusion. There is a moderate lef t pleural effusion which shows slight interval increase in size. Worsening bilateral basilar infiltr ates are seen particularly in the left lower lobe. There is a persistent right basilar infiltrate. No architectural distortion. Visualized thyroid gland: Unremarkable. Mediastinum and Ginny: No dominant adenopathy or fluid collection. The esophagus is unremarkable. Pleura: No pneumothorax. Heart: Cardiomegaly. Three vessel coronary artery calcification and/or stents. No pericardial effus ion. Pulmonary arteries: No pulmonary emboli are identified. Aorta: Thoracic aorta non-dilated. Atherosclerosis. No evidence of dissection. Lymph nodes: Within normal limits. Tubes, Catheters, and Lines: There is a right-sided Mpfurd-B-Dcat type catheter. Soft tissues: Unremarkable. Bones:Within normal limits for the patient's age. There is a stable mild superior endplate compressi on fracture of T4. No aggressive osseous lesions are identified in the thoracic spine. ABDOMEN: Liver: Normal density. There are stable hepatic cysts. No suspicious hepatic masses are seen. Portal, Superior Mesenteric, and Splenic Veins: Unremarkable. Gallbladder and Biliary Tract: There again seen postsurgical changes of a cholecystectomy and partial gastrectomy. Pancreas: There is atrophy of the body and tail of the pancreas. There is no change in the soft tiss ues seen interposed between the renal vein and the superior mesenteric vessels. Spleen: Normal. Adrenals: No masses seen. Kidneys: Normal size, contour and axis. 3 mm non-obstructing right stone. Bilateral stable renal cys ts. No follow-up is recommended. Abdominal Aorta: Abdominal portion non-dilated. Atherosclerosis. Bowel: Status post partial gastrectomy. There is no evidence of bowel obstruction. There is mild ida wel wall thickening in loops of small bowel which may be secondary to the ascites. Appendix is unrem arkable. Peritoneal Cavity: There is now large amount of abdominal pelvic ascites. No free air. Lymph Nodes: Within normal limits. Bones: Within normal limits for the patient's age. No change in the bones compared to the prior exam ination. Soft Tissues: There is a large right inguinal hernia containing ascites. PELVIS: Bladder: Symmetric distention, no gross wall thickening. Reproductive Organs: Unremarkable as visualized. Lymph Nodes: Within normal limits. Bones: Within normal limits. There is now superior endplate compression fracture deformity of L3 with loss of approximately a corner of the height of the vertebral body centrally. IMPRESSION: 1. Interval slight increase in size of the left pleural effusion and a persistent right pleural effus ion. 2. Bilateral basilar subjacent infiltrates which have progressed on the left since the prior examinat ion from 01/12/2023. 3. Interval increase in the abdominal pelvic ascites which is now large. 4. Stable soft tissue in the surgical bed around the superior mesenteric artery. Recurrent or metast atic disease should be considered. 5. New superior compression fracture of L3 since 01/12/2023. 6. Stable incidental findings in the abdomen and pelvis as described above. Unexpected findings RADIATION DOSE DELIVERED: Total DLP DATA REPOSITORY: All CT scans at this facility are submitted to the National Radiology Data Registry (NRDR) Dose Index Registry (DIR) with the [employer] (ACR). RADIATION OPTIMIZATION: All CT scans at this facility use at least one of these dose optimization te chniques: automated exposure control; mA and/or kV adjustment per patient size (includes targeted exa ms where dose is matched to clinical indication); or iterative reconstruction.
[2023-04-03] MEDS: Omnipaque 350 MG/ML 500 ML BTL-Imaging package 100 ML IJ (10:59)
== END ==
PROVIDERS: Visit Provider Nurse Practitioner Family
DX: J90 Pleural effusion, not elsewhere classified (principal); R18.8 Other ascites; R91.8 Other nonspecific abnormal finding of lung field; C25.9 Malignant neoplasm of pancreas, unspecified
CPT/HCPCS: 36591; 74177; 80053; 71260; 85025; 86301

== ENCOUNTER 2023-04-03 01:40 | Outpatient (RCR) | payer MEDICARE, BC, SELFPAY ==
[2023-03-20] MEDS: Normal Saline Flush 10 ML SYR IVP (11:11)
[2023-03-20 11:21] LABS: Abs Immature Grans 0.03 10^3/uL (0.0-0.06); Absolute Basophil Count 0.03 10^3/uL (0.0-0.2); Absolute Eosinophil Count 0.02 10^3/uL (0.0-0.7); Absolute Lymphocyte Count 0.35 10^3/uL (1.2-3.4); Absolute Monocyte Count 0.54 10^3/uL (0.1-0.8); Absolute Neutrophil Count 6.59 10^3/uL (1.2-6.7); Basophils % 0.4; Eosinophils % 0.3; HCT 33.2 % (40.0-50.0); HGB 10.5 g/dL (13.5-17.5); Immature Grans % 0.4; Lymphocytes % 4.6; MCH 29.4 pg (27.0-33.0); MCHC 31.6 % (32.0-36.0); MCV 93 fL (80-95); Monocytes % 7.1; Neutrophils % 87.2; Platelet Count 295 10^3/uL (130-400); RBC 3.57 10^6/uL (4.36-5.78); RDW 16.6 % (11.8-14.1); RDW-SD 56.2 fL; WBC 7.56 10^3/uL (4.4-10.8)
[2023-03-20 11:38] LABS: ALT 19 U/L (16-63); AST 20 U/L (15-37); Albumin 2.1 g/dL (3.4-5.0); Alkaline Phosphatase 253 U/L (46-116); Anion Gap 6.5 mmol/L (3-11); BUN 12 mg/dL (7-18); Bilirubin, Total 0.6 mg/dL (0.2-1.0); CO2 25.5 mmol/L (21.0-32.0); CREATININE 0.9 mg/dL (0.70-1.30); Chloride 104 mmol/L (98-107); Estimated GFR 89.62 (mL/min/1.73m2); Glucose 482 mg/dL (74-106); Sodium 136 mmol/L (136-145); Total Protein 5.7 g/dL (6.4-8.2)
[2023-03-21] LABS: CA 19-9 1576 U/mL (<35)
[2023-04-03] MEDS: Normal Saline Flush 10 ML SYR IVP (08:13)
[2023-04-03 08:20] LABS: Abs Immature Grans 0.03 10^3/uL (0.0-0.06); Absolute Basophil Count 0.04 10^3/uL (0.0-0.2); Absolute Eosinophil Count 0.06 10^3/uL (0.0-0.7); Absolute Lymphocyte Count 0.44 10^3/uL (1.2-3.4); Absolute Monocyte Count 0.67 10^3/uL (0.1-0.8); Basophils % 0.5; Eosinophils % 0.7; HCT 31.6 % (40.0-50.0); Immature Grans % 0.4; Lymphocytes % 5.4; MCH 28.7 pg (27.0-33.0); MCHC 31.6 % (32.0-36.0); MCV 91 fL (80-95); MPV 9.7 fL (8.0-11.0); Monocytes % 8.2; Neutrophils % 84.8; Platelet Count 244 10^3/uL (130-400); RBC 3.49 10^6/uL (4.36-5.78); RDW 17.2 % (11.8-14.1); RDW-SD 55.4 fL; WBC 8.14 10^3/uL (4.4-10.8)
[2023-04-03 08:35] LABS: ALT 24 U/L (16-63); AST 19 U/L (15-37); Alkaline Phosphatase 188 U/L (46-116); Anion Gap 5.5 mmol/L (3-11); BUN 18 mg/dL (7-18); Bilirubin, Total 0.7 mg/dL (0.2-1.0); CO2 26.5 mmol/L (21.0-32.0); CREATININE 0.8 mg/dL (0.70-1.30); Chloride 104 mmol/L (98-107); Estimated GFR 92.87 (mL/min/1.73m2); Glucose 161 mg/dL (74-106); Sodium 136 mmol/L (136-145); Total Protein 5.9 g/dL (6.4-8.2)
[2023-04-03 21:00] LABS: CA 19-9 547 U/mL (<35)
== END 2023-04-12 23:59 | disposition home or self-care (01) ==
LOC: INF 01:40
PROVIDERS: Visit Provider Internal Medicine Hematology & Oncology
DX: C25.0 Malignant neoplasm of head of pancreas (principal); Z45.2 Encounter for adjustment and management of vascular access device
CPT/HCPCS: 36591; 80053; 85025; 86301

== ENCOUNTER 2023-06-02 10:48 | Day surgery (SDC) | payer MEDICARE, BC, SELFPAY ==
--- NOTE | 2023-06-01 16:09 | W.PM.DSUDISC ---
Date of service: 06/02/23 Time of Service: 12:51 Discharge Plan Disposition Patient Disposition: Home Condition: Deteriorating Discharge Details Reason For Visit: abdominal fluid removal Attending Provider: Gerda Sharma Primary Care Provider: [facility] Home Meds and New Rx's Prescriptions: No Action prochlorperazine maleate [Compazine] 10 mg tablet 10 mg PO Q6H PRN docusate sodium [Colace] 100 mg capsule 100 mg PO DAILY Jardiance 25 mg tablet 25 mg PO DAILY dronabinol 2.5 mg capsule 2.5 mg PO BID Rx Instructions: administer before 2 capsules lunch and 1 capsule evening meal/dinner morphine concentrate 100 mg/5 mL (20 mg/mL) solution See Rx Instructions PO Q1H PRN MDD 240 mg Qty: 30 0RF Rx Instructions: 0.25-1.0ml q 1 hr orally every 1 hour, as needed; HOSPICE lorazepam 1 mg tablet 1 mg PO Q4H PRN (Reason: anxiety) Qty: 10 5RF Rx Instructions: hospice hydromorphone 2 mg/mL solution See Rx Instructions IV Q1H MDD 60 mg Qty: 100 0RF Rx Instructions: Hospice CADD pump IV via port 1-1.4 mg/hr basal dose 0.4-0.7 mg q 15 min bolus dose for 06/02/23 diltiazem HCl 120 mg Capsule,Extended Release 24 Hr 120 mg PO DAILY omeprazole 20 mg Capsule,Delayed Release(Dr/Ec) 20 mg PO DAILY Eye Lubricant Ointment 1 applic OPHTHALMIC (EYE) HS Rx Instructions: while awake; not to exceed 16 doses per 24 hour period insulin glargine 100 unit/mL (3 mL) Insulin Pen 18 unit SUBCUT DAILY Creon 24,000-76,000 -120,000 unit Capsule,Delayed Release(Dr/Ec) 4 cap PO TID Rx Instructions: administer with meals and/or snacks Discharge Instructions Additional Instructions: A paracentesis is a procedure to remove extra fluid from your belly (abdomen). This fluid buildup in the abdomen is called ascites. This fluid may be removed to decrease abdominal pressure or to examine the fluid in the laboratory. Fluid buildup in your abdomen can sometimes cause problems with your bowels and breathing if it is not removed. What should I expect after the paracentesis? You might notice there is less tightness around your abdomen. You will be able to breathe better, which should help you feel more comfortable. How do I care for myself at home? ?? If you have pain after the procedure, your primary care provider can prescribe or recommend appropriate medications. ? It is normal for a small amount of fluid to leak from the puncture site. Keep the area dry and covered to prevent infection. ?? After 24 hours, you can remove your bandage and shower. You can wash the needle site gently with soap and warm water. ? Do not tub bath or submerge in water for three days. ?? Limit your activity for the rest of the day. Nutritional tips ?? Eat small, frequent and protein rich meals throughout the day (every 2 ? 4 hours) ? Limit added salt and high sodium foods ? Avoid alcohol When to get help ?Go to the ER if you have any of the following: ?? Fever above 100.4 ?F (38.0 ?C) ? Bleeding from the puncture site ?? Difficulty breathing ? Increased pain, redness, or swelling at the puncture site ?? Unable to produce urine Activity:: Activity as Tolerated Diet:: As Tolerated Discharge Orders Discharge Orders: Discharge Order (Routine); Ordered 06/02/23 Ordered By: Gerda Sharma DS: Diagnosis Discharge Diagnosis (1) Hospice care: Status: Acute (2) Malnutrition: Status: Acute (3) Ascites, malignant: Status: Acute (4) Pancreatic cancer: Status: Acute (5) Anxiety disorder: (6) Depressive disorder: (7) Opioid dependence: (8) Hypertension: (9) CAD (coronary artery disease): (10) Chronic atrial fibrillation: (11) Diabetes mellitus: (12) Chronic renal insufficiency: (13) CVA (cerebral vascular accident): (14) Insomnia:
[2023-06-02 11:16] VITALS: BP 133/93; PULSE 116; RESP 16; TEMP 36.5; O2SAT 98
[2023-06-02 11:45] LABS: INR 1.3 (0.9-1.1); Prothrombin Time 12.4 sec (9.1-11.1)
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
[2023-06-02] MEDS: Lidocaine 1% Multi-Dose W/EPI 1/100,000 50 ML VIAL (12:30)
[2023-06-02] MEDS: Sodium Bicarbonate 50 MEQ/50 ML VIAL (12:30)
[2023-06-02 12:48] VITALS: BP 114/88; PULSE 96; RESP 16; TEMP 36.2; O2SAT 98
--- NOTE | 2023-06-02 12:51 | W.PM.OP ---
Date of service: 06/02/23 Time of Service: 12:51 Operative Note Operative Note DATE OF PROCEDURE: 06/02/23 PRE-OP DIAGNOSIS: Malignant pleural effusion secondary to pancreatic cancer POST-OP DIAGNOSIS: same PROCEDURE: Paracentesis SURGEON: Gerda Sharma ANESTHESIA TYPE: Local By Surgeon Refer to Anesthesia Record ESTIMATED BLOOD LOSS: 1 PATHOLOGY: none sent COMPLICATIONS: None Patient was transported to: same day Patient's condition: stable Procedure Description: Informed consent is obtained, explaining benefits and risks of the procedure including but not limited to: bleeding/infections/damage to bowels or blood vessels/chronic drainage or leakage/need for repeat procedure/reactions to anesthetics.?? The patient is brought to the procedure room and placed in the supine position.?? A time-out is done.? Ultrasound is used to localize the pocket of fluid.? The area is prepped and draped in the usual sterile fashion using a ChloraPrep scrub solution.? 10 cc's of 1% Lidocaine with epinephrine is used for local anesthetization.? The abdomen is punctured and the catheter is inserted.? 4 L of milky white fluid is evacuated today.? The catheter is removed.? Pressure dressing is applied.? The patient tolerated the procedure well without complication and transferred to recovery in stable condition.?
== END 2023-06-02 13:30 | disposition home or self-care (01) ==
LOC: SUR 10:52
PROVIDERS: Visit Provider Surgery
PROC: 0W9G3ZZ Drainage of Peritoneal Cavity, Percutaneous Approach (ICD-10-PCS; CPT 49082; principal; 2023-06-02 11:00)
DX: R18.0 Malignant ascites (principal); C25.9 Malignant neoplasm of pancreas, unspecified
CPT/HCPCS: 49083; 36415; 85610; J2004

== ENCOUNTER 2023-06-19 11:49 | Day surgery (SDC) | payer MEDICARE, BC, SELFPAY ==
--- NOTE | 2023-06-18 23:05 | PDOC.DSDIS_ITS ---
Date of service: 06/19/23 Time of Service: 16:07 Discharge Plan Disposition Patient Disposition: Home Condition: Deteriorating Discharge Details Reason For Visit: removal fluid from the abdomen Attending Provider: Gerda Sharma Primary Care Provider: [facility] Home Meds and New Rx's Prescriptions: No Action prochlorperazine maleate [Compazine] 10 mg tablet 10 mg PO Q6H PRN docusate sodium [Colace] 100 mg capsule 100 mg PO DAILY Jardiance 25 mg tablet 25 mg PO DAILY dronabinol 2.5 mg capsule 2.5 mg PO BID Rx Instructions: administer before 2 capsules lunch and 1 capsule evening meal/dinner morphine concentrate 100 mg/5 mL (20 mg/mL) solution See Rx Instructions PO Q1H PRN MDD 240 mg Qty: 30 0RF Hold Instructions: Pt Stopped/Never Started Rx Instructions: 0.25-1.0ml q 1 hr orally every 1 hour, as needed; HOSPICE lorazepam 1 mg tablet 1 mg PO Q4H PRN (Reason: anxiety) Qty: 10 5RF Rx Instructions: hospice hydromorphone (PF) 10 mg/mL solution 2 mg IV .COMPLEX MDD 60 mg Qty: 100 0RF Rx Instructions: 2 m/hr basal dose intravenously via port; cadd pump 1 mg bolus q 15 minutes 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 oxycodone 20 mg tablet 20 mg PO BID PRN MDD 2 tab PRN (Reason: pain) Qty: 28 0RF Rx Instructions: hospice ipratropium-albuterol 0.5 mg-3 mg(2.5 mg base)/3 mL solution for nebulization 3 ml inhalation Q6H PRN (Reason: wheezing) Qty: 90 0RF Rx Instructions: hospice diltiazem HCl 120 mg Capsule,Extended Release 24 Hr 120 mg PO DAILY omeprazole 20 mg Capsule,Delayed Release(Dr/Ec) 20 mg PO DAILY Eye Lubricant Ointment 1 applic OPHTHALMIC (EYE) HS Rx Instructions: while awake; not to exceed 16 doses per 24 hour period insulin glargine 100 unit/mL (3 mL) Insulin Pen 18 unit SUBCUT DAILY Creon 24,000-76,000 -120,000 unit Capsule,Delayed Release(Dr/Ec) 4 cap PO TID Rx Instructions: administer with meals and/or snacks Discharge Instructions Additional Instructions: Discharge Instructions for?Paracentesis Paracentesis is a procedure to remove extra fluid from your belly (abdomen). This fluid buildup in the abdomen is called?ascites. The procedure may have been done to take a sample of the fluid. Or, it may have been done to drain the extra fluid from your abdomen?and help make you more comfortable. Home care If you have pain after the procedure, your healthcare provider can prescribe or recommend pain medicines. Take these exactly as directed. If you stopped taking other medicines before the procedure, ask your provider when you can start them again.Take it easy for?24?hours after the procedure. Don't do any physical activity until your provider says it?s OK.You will have a small bandage over the puncture site. Stitches, surgical carlos alberto, adhesive tapes, adhesive strips, or surgical glue may be used to close the cut (incision). They also help stop bleeding and speed healing. You may take the bandage off in?24?hours.Check the puncture site for the signs of infection listed below. Follow-up care Make a follow-up appointment with your healthcare provider as directed. During your follow-up visit, your provider will check your healing. Let your provider know how you are feeling. You can also discuss the cause of your ascites and if you need any further treatment. If your fluid is infected, you will be sent home on antibiotics. In some cases, the paracentesis may need to be repeated if the fluid returns. Your provider may also prescribe medicines that increase urination (diuretics) to decrease the buildup of fluid. When to call your healthcare provider Call your healthcare provider if any of the following occur: Fever of?100.4??F?(?38?C) or higher, or as directed by your providerChi llsTrouble breathingPain that doesn't go away even after taking pain medicineBelly pain not caused by having the skin puncturedBleeding from the puncture siteMore than a small amount of fluid leaking from the puncture siteSwollen bellySigns of infection at the puncture site. These include increased pain, redness, or swelling, warmth, or bad-smelling drainage.Blood in your urineFeeling dizzy or lightheaded, or fainting Activity:: see above Remove Dressings/Wound Care:: 24 hours Shower/Bathe:: 24 hours Diet:: high protien DS: Diagnosis Discharge Diagnosis (1) Hospice care: Status: Acute (2) Malnutrition: Status: Acute (3) Nuclear sclerotic cataract of left eye: Status: Resolved (4) Ascites, malignant: Status: Acute (5) Pancreatic cancer: Status: Acute (6) Anxiety disorder: (7) Opioid dependence: (8) Hypertension: (9) CAD (coronary artery disease): (10) Chronic atrial fibrillation: (11) Diabetes mellitus: (12) History of diarrhea: (13) CVA (cerebral vascular accident): (14) Chronic low back pain: (15) PTSD (post-traumatic stress disorder): (16) Depressive disorder:
[2023-06-19 12:20] VITALS: BP 94/68; PULSE 73; RESP 18; TEMP 36.3; O2SAT 94
[2023-06-19] MEDS: Sodium Bicarbonate 50 MEQ/50 ML VIAL (14:58)
[2023-06-19 15:36] VITALS: BP 94/78; PULSE 85; RESP 12; TEMP 36.4; O2SAT 95
--- NOTE | 2023-06-22 08:37 | W.PM.OP ---
Date of service: 06/19/23 Time of Service: 15:00 Operative Note Operative Note DATE OF PROCEDURE: 06/19/23 PRE-OP DIAGNOSIS: Metastatic pancreatic cancer POST-OP DIAGNOSIS: same PROCEDURE: Paracentesis SURGEON: Gerda Sharma ANESTHESIA TYPE: Local By Surgeon Refer to Anesthesia Record ESTIMATED BLOOD LOSS: 1 PATHOLOGY: none sent Patient was transported to: PACU Patient's condition: other (Hospice) Procedure Description: Informed consent is obtained, explaining benefits and risks of the procedure including but not limited to: bleeding/infections/damage to bowels or blood vessels/chronic drainage or leakage/need for repeat procedure/reactions to anesthetics.?? The patient is brought to the procedure room and placed in the supine position.?? A time-out is done.? Ultrasound is used to localize the pocket of fluid.? The area is prepped and draped in the usual sterile fashion using a ChloraPrep scrub solution.? 10 cc's of 1% Lidocaine with epinephrine is used for local anesthetization.? The abdomen is punctured and the catheter is inserted.?6 liters of light yellow fluid is evacuated today.? The catheter is removed.? Pressure dressing is applied.? The patient tolerated the procedure well without complication and transferred to recovery in stable condition.?
== END 2023-06-19 16:13 | disposition home or self-care (01) ==
LOC: SUR 11:50
PROVIDERS: Visit Provider Surgery
PROC: 0W9G3ZZ Drainage of Peritoneal Cavity, Percutaneous Approach (ICD-10-PCS; CPT 49082; principal; 2023-06-19 12:00)
DX: R18.0 Malignant ascites (principal); C25.9 Malignant neoplasm of pancreas, unspecified
CPT/HCPCS: 49083